=== PATIENT | male | born 1925 | race Caucasian/White ===

== ENCOUNTER → 2016-06-30 | Outpatient (CLI) | payer MEDICARE, BC ==
[~2016-06-30] MED LIST: BACT800T5 PO; BENI20TA5 PO; BENI40TA30 PO; CEPH500C3 PO; ERYT.5%O RIGHT EYE
[2016-06-30 12:24] LABS: BICARBONATE 26.8 MEQ/L (21.0-32.0); HDL CHOLESTEROL 68.4 MG/DL (40.0-60.0); INDIRECT BILIRUBIN 0.6 MG/DL (0.0-0.8); POTASSIUM 4.4 MEQ/L (3.5-5.1); TOTAL BILIRUBIN ADULT 0.8 MG/DL (0.2-1.0)
[2016-06-30 12:29] LABS: AUTOMATED NEUTROPHIL # 1.1 TH/MM3 (1.8-7.7); BASOPHIL % 1.2 % (0.0-2.0); EOSINOPHIL # 0.1 TH/MM3 (0-0.4); EOSINOPHIL % 3.6 % (0.0-4.0); HEMATOCRIT 31.4 % (39.0-51.0); HEMO FLAGS DIFF FINAL; LYMPH % 49.1 % (9.0-44.0); LYMPHOCYTE # 1.4 TH/MM3 (1.0-4.8); MEAN CELL VOLUME 101.7 FL (80.0-100.0); MEAN CORPUSCULAR HEMOGLOBIN 33.9 PG (27.0-34.0); MEAN CORPUSCULAR HGB CONC 33.3 % (32.0-36.0); MONO % 6.3 % (0.0-8.0); NEUT % 39.8 % (16.0-70.0); PLATELET COUNT 171 TH/MM3 (150-450); RED BLOOD COUNT 3.09 MIL/MM3 (4.50-5.90); RED CELL DISTRIBUTION WIDTH 16.7 % (11.6-17.2); WHITE BLOOD COUNT 2.8 TH/MM3 (4.0-11.0)
== END ==
LOC: PLAB 09:33
PROVIDERS: ATTEND Family Medicine
DX: E78.2 Mixed hyperlipidemia (principal); I12.9 Hypertensive chronic kidney disease with stage 1 through stage 4 chronic kidney disease, or unspecified chronic kidney disease; N18.2 Chronic kidney disease, stage 2 (mild); D63.1 Anemia in chronic kidney disease; D53.9 Nutritional anemia, unspecified; Z79.899 Other long term (current) drug therapy
CPT/HCPCS: 36415; 80048; 80061; 80076; 82607; 85025

== ENCOUNTER 2016-07-30 18:46 | Emergency (ER) | payer MEDICARE, BC ==
[~2016-07-30] VITALS: Ht 182.9 cm; Wt 75.0 kg
[~2016-07-30 18:46] MED LIST changes: -BENI20TA5 PO
[2016-07-30 18:49] VITALS: PULSE 104; RESP 17; TEMP 98.2; O2SAT 97
[2016-07-30] MEDS ORDERED: BENI20TA5 PO (19:05)
--- NOTE | 2016-07-30 19:17 | PD ---
HPI Chief Complaint: Skin Problem Time Seen by Provider: 19:00 Travel History International Travel<30 days: No Contact w/Intl Traveler<30days: No Traveled to known affect area: No History of Present Illness HPI 89-year-old male presents the emergency department status post skin tear on July 16, 2016 to the left posterior distal upper arm. Patient is here as she is concerned about possible cellulitis. He states it seems to be healing slowly but then he'll wash it and it bleed somewhat and he is concerned that it is not healing appropriately. Patient denies any pain, fever, or significant drainage. He is allergic to all amide drugs. 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) Reported Meds & Prescriptions Reported Meds & Active Scripts Active Reported Benicar (Olmesartan) 20 Mg Tab 20 Mg PO DAILY Review of Systems Except as stated in HPI: all other systems reviewed are Neg General / Constitutional: No: Fever Eyes: No: Visual changes HENT: No: Headaches Cardiovascular: No: Chest Pain or Discomfort Respiratory: No: Shortness of Breath Gastrointestinal: No: Abdominal Pain Genitourinary: No: Dysuria Musculoskeletal: No: Pain Skin: Positive Lesions, No Rash Neurologic: No: Weakness Psychiatric: No: Depression Endocrine: No: Polydipsia Hematologic/Lymphatic: No: Easy Bruising Physical Exam Narrative GENERAL: Patient appears in good spirits and in no acute distress SKIN: Warm and dry. Normal color. Normal turgor. Atrophic. Patient has a 6 cm well granulating linear skin tear in the vertical axis along the left posterior distal upper arm. HEAD: Atraumatic. Normocephalic. EYES: Pupils equal and round. No scleral icterus. No injection or drainage. ENT: No nasal bleeding or discharge. Mucous membranes pink and moist. Pharynx is clear. NECK: Trachea midline. Supple nontender. MUSCULOSKELETAL: Extremities without clubbing, cyanosis, or edema. No obvious deformities. NEUROLOGICAL: Awake and alert. No obvious cranial nerve deficits. Motor grossly within normal limits. Five out of 5 muscle strength in the arms and legs. Normal speech. PSYCHIATRIC: Appropriate mood and affect; insight and judgment normal. Data Data Last Documented VS Vital Signs Date Time Temp Pulse Resp B/P Pulse Ox O2 Delivery O2 Flow Rate FiO2 07/30/16 18:49 98.2 104 17 97 MDM Medical Decision Making Medical Screen Exam Complete: Yes Emergency Medical Condition: Yes Differential Diagnosis Skin tear. Nonhealing wound. Cellulitis. Narrative Course Patient is evaluated by myself and Dr. Villagomez. Patient is felt to have a slowly healing skin tear to the left posterior upper arm. Patient has no sign of cellulitis or abscess. Patient is to continue daily dressing changes with soap and water cleansing. Patient follow with his primary care physician or return to the ED if symptoms continue to worsen in anyway. Patient was counseled that this may take over 2 weeks to completely heal. Diagnosis Primary Impression: Skin tear of left upper arm without complication Qualified Code: S41.112A - Skin tear of left upper arm without complication, initial encounter Referrals: Primary Care Physician Patient Instructions: Chronic Wound Care (ED), General Instructions, Skin Tear (ED) Additional Instructions: Patient is evaluated by myself and Dr. Villagomez. Patient is felt to have a slowly healing skin tear to the left posterior upper arm. Patient has no sign of cellulitis or abscess. Patient is to continue daily dressing changes with soap and water cleansing. Patient follow with his primary care physician or return to the ED if symptoms continue to worsen in anyway. Patient was counseled that this may take over 2 weeks to completely heal. Med/Other Pt SpecificInfo: Wound Care Disposition: DISCHARGE HOME Condition: Stable Rafi Greene July 30, 2016 19:17
== END 2016-07-30 19:20 | disposition home or self-care (01) ==
LOC: PHEFT 18:46
DX: S41.112A Laceration without foreign body of left upper arm, initial encounter (principal); I10 Essential (primary) hypertension; X58.XXXA Exposure to other specified factors, initial encounter
CPT/HCPCS: 99282

== ENCOUNTER → 2016-12-20 | Outpatient (CLI) | payer MEDICARE, BC ==
[~2016-12-20] MED LIST changes: -BACT800T5 PO; +BENI20TA5 PO; -BENI40TA30 PO; -CEPH500C3 PO; -ERYT.5%O RIGHT EYE
[2016-12-20 10:40] LABS: AUTOMATED NEUTROPHIL # 1.6 TH/MM3 (1.8-7.7); BASOPHIL % 0.9 % (0.0-2.0); EOSINOPHIL # 0.2 TH/MM3 (0-0.4); EOSINOPHIL % 5.8 % (0.0-4.0); HEMATOCRIT 30.8 % (39.0-51.0); HEMO FLAGS DIFF FINAL; LYMPH % 39.2 % (9.0-44.0); LYMPHOCYTE # 1.3 TH/MM3 (1.0-4.8); MEAN CELL VOLUME 107.1 FL (80.0-100.0); MEAN CORPUSCULAR HEMOGLOBIN 34.9 PG (27.0-34.0); MEAN CORPUSCULAR HGB CONC 32.6 % (32.0-36.0); MONO % 8.1 % (0.0-8.0); PLATELET COUNT 143 TH/MM3 (150-450); RED BLOOD COUNT 2.87 MIL/MM3 (4.50-5.90); WHITE BLOOD COUNT 3.4 TH/MM3 (4.0-11.0)
[2016-12-20 10:57] LABS: HDL CHOLESTEROL 62.7 MG/DL (40.0-60.0); INDIRECT BILIRUBIN 0.5 MG/DL (0.0-0.8); TOTAL BILIRUBIN ADULT 0.7 MG/DL (0.2-1.0)
== END ==
LOC: PLAB 08:10
PROVIDERS: ATTEND Family Medicine
DX: E78.2 Mixed hyperlipidemia (principal); D53.9 Nutritional anemia, unspecified; Z79.899 Other long term (current) drug therapy
CPT/HCPCS: 36415; 80061; 80076; 85025

== ENCOUNTER → 2017-03-27 | Outpatient (CLI) | payer MEDICARE, BC ==
[~2017-03-27] MED LIST changes: -BENI20TA5 PO; +OLME1TAB PO
== END ==
LOC: PLAB 11:35
PROVIDERS: ATTEND Urology
DX: C61 Malignant neoplasm of prostate (principal)
CPT/HCPCS: 36415; 84153

== ENCOUNTER 2017-04-10 17:45 | Inpatient (IN) | payer MEDICARE, BC ==
[~2017-04-10] VITALS: Ht 182.9 cm; Wt 73.4 kg
[2017-04-10 17:45] VITALS: BP 154/123; PULSE 85; RESP 16; TEMP 98.1; O2SAT 95
[2017-04-10] MEDS ORDERED: IOHEXOL 350 MG/ML 10 ML VIAL (for RAD DIAG) IVCONTRAST ONE (17:46)
[2017-04-10] MEDS ORDERED: SODIUM CHLOR 0.9% 1000 ML INJ 1,000 ML IV ONE (17:50)
[2017-04-10] MEDS ORDERED: PROT40TA PO (18:10)
[2017-04-10] MEDS ORDERED: LOSA25TA PO (18:10)
[2017-04-10] MEDS ORDERED: LINA145C PO (18:10)
[2017-04-10 18:12] LABS: AUTOMATED NEUTROPHIL # 2.3 TH/MM3 (1.8-7.7); BASOPHIL # 0.2 TH/MM3 (0-0.2); BASOPHIL % 5.1 % (0.0-2.0); EOSINOPHIL # 0.2 TH/MM3 (0-0.4); EOSINOPHIL % 3.5 % (0.0-4.0); HEMATOCRIT 29.6 % (39.0-51.0); HEMOGLOBIN 10.2 GM/DL (13.0-17.0); LYMPH % 30.5 % (9.0-44.0); LYMPHOCYTE # 1.3 TH/MM3 (1.0-4.8); MEAN CELL VOLUME 106.5 FL (80.0-100.0); MEAN CORPUSCULAR HEMOGLOBIN 36.6 PG (27.0-34.0); MEAN CORPUSCULAR HGB CONC 34.3 % (32.0-36.0); MEAN PLATELET VOLUME 11.1 FL (7.0-11.0); MONO % 7.1 % (0.0-8.0); MONOCYTE # 0.3 TH/MM3 (0-0.9); NEUT % 53.8 % (16.0-70.0); PLATELET COUNT 231 TH/MM3 (150-450); RED BLOOD COUNT 2.78 MIL/MM3 (4.50-5.90); RED CELL DISTRIBUTION WIDTH 18.4 % (11.6-17.2); WHITE BLOOD COUNT 4.3 TH/MM3 (4.0-11.0)
[2017-04-10 18:14] VITALS: BP 136/67; PULSE 87; RESP 16; O2SAT 98
[2017-04-10] MEDS ORDERED: ASPIRIN EC 325 MG TABEC PO ONE (18:15)
--- NOTE | 2017-04-10 18:17 | RADRPT ---
EXAM DATE/TIME: 04/10/2017 18:01 [facility] COMPARISON: No previous studies available for comparison. INDICATIONS : Stroke alert, left side facial droop and left side arm weakness. RADIATION DOSE: 34.32 CTDIvol (mGy) This report was called by Dr. Serrano to Dr. Moreira at 6: 10 PM on 04/10/17. MEDICAL HISTORY : Non-responsive. SURGICAL HISTORY : Non-responsive. ENCOUNTER: Initial ACUITY: 1 day PAIN SCALE: Non-responsive LOCATION: cranial TECHNIQUE: Multiple contiguous axial images were obtained of the head. Using automated exposure control and adj ustment of the mA and/or kV according to patient size, radiation dose was kept as low as reasonably a chievable to obtain optimal diagnostic quality images. DICOM format image data is available electro nically for review and comparison. FINDINGS: CEREBRUM: Age-related volume loss is noted. No evidence of midline shift, mass lesion, hemorrhage or acute inf arction. No extra-axial fluid collections are seen. POSTERIOR FOSSA: The cerebellum and brainstem are intact. The 4th ventricle is midline. The cerebellopontine angle i s unremarkable. EXTRACRANIAL: The visualized portion of the orbits is intact. SKULL: The calvaria is intact. No evidence of skull fracture. CONCLUSION: 1. Age-related volume loss. 2. No acute edema, acute hemorrhage, midline shift or extra-axial fluid collections. Bry Serrano MD on April 10, 2017 at 18:12 Board Certified Radiologist. This report was verified electronically.
[2017-04-10 18:30] LABS: INTERNATIONAL NORMALIZED RATIO 1.1 RATIO; PROTHROMBIN TIME - PATIENT 11.1 SEC (9.8-11.6)
--- NOTE | 2017-04-10 18:42 | RADRPT ---
EXAM DATE/TIME: 04/10/2017 18:01 [facility] COMPARISON: No previous studies available for comparison. INDICATIONS : Stroke alert, left facial droop, left arm weakness. IV CONTRAST: 100 cc Omnipaque 350 (iohexol) IV ; Cumulative dose for multiple exams. RADIATION DOSE: 27.83 CTDIvol (mGy) ; Combined studies MEDICAL HISTORY : Non-responsive. SURGICAL HISTORY : Non-responsive. ENCOUNTER: Initial ACUITY: 1 day PAIN SCALE: Non-responsive LOCATION: cranial TECHNIQUE: Volumetric scanning was performed using a multi-row detector CT scanner. The data was post processed with a variety of visualization algorithms including full volume maximum intensity projection, multi -planar sliding thin slab reformation, curved planar reformation, and surface rendering techniques. Using automated exposure control and adjustment of the mA and/or kV according to patient size, radiat ion dose was kept as low as reasonably achievable to obtain optimal diagnostic quality images. DICO M format image data is available electronically for review and comparison. FINDINGS: There is excellent visualization of the major intracranial arteries out to the second-order branch ve ssels. There is no evidence for aneurysm, vessel truncation or stenosis, and no evidence for vascula r malformation. The bilateral pleural effusions are noted. CONCLUSION: 1. No significant stenosis, occlusion or aneurysm formation. 2. Bilateral pleural effusions. Bry Serrano MD on April 10, 2017 at 18:37 Board Certified Radiologist. This report was verified electronically.
[2017-04-10 18:51] LABS: TROPONIN I 0.67 NG/ML (0.02-0.05)
--- NOTE | 2017-04-10 18:51 | RADRPT ---
EXAM DATE/TIME: 04/10/2017 18:01 [facility] COMPARISON: No previous studies available for comparison. INDICATIONS : Stroke alert, left facial droop, left arm weakness, IV CONTRAST: 100 cc Omnipaque 350 (iohexol) IV ; Cumulative dose for multiple exams. RADIATION DOSE: 248.13 CTDIvol (mGy) ; Combined studies MEDICAL HISTORY : Non-responsive. SURGICAL HISTORY : Non-responsive. ENCOUNTER: Initial ACUITY: 1 day PAIN SCALE: Non-responsive LOCATION: cranial TECHNIQUE: CT perfusion of the brain was performed with calculation of input and output functions and generation of color coded blood flow, blood volume and mean transit time maps. Using automated exposure control and adjustment of the mA and/or kV according to patient size, radiation dose was kept as low as reas onably achievable to obtain optimal diagnostic quality images. DICOM format image data is available electronically for review and comparison. FINDINGS: The examination is limited due to technical factors. There appears to be decreased perfusion of the r ight frontoparietal region suggestive of acute infarct. Clinical correlation is recommended. MRI of t he brain would be helpful for confirmation of acute infarct in this patient if clinically indicated. CONCLUSION: Decrease perfusion of the right frontoparietal region suggestive of acute infarct. Clinical correlati on is recommended. The findings were discussed with Dr. Moreira at 6:48 PM on 04/10/17 Bry Serrano MD on April 10, 2017 at 18:43 Board Certified Radiologist. This report was verified electronically.
--- NOTE | 2017-04-10 19:06 | RADRPT ---
EXAM DATE/TIME: 04/10/2017 18:01 [facility] COMPARISON: No previous studies available for comparison. INDICATIONS : Stroke alert, left facial droop, left arm weakness. IV CONTRAST: 100 cc Omnipaque 350 (iohexol) IV ; Cumulative dose for multiple exams. RADIATION DOSE: 27.83 CTDIvol (mGy) ; Combined studies MEDICAL HISTORY : Non-responsive. SURGICAL HISTORY : Non-responsive. ENCOUNTER: Initial ACUITY: 1 day PAIN SCALE: Non-responsive LOCATION: cranial Elevated flow velocities and ICA/CCA ratios have been found to correlate with increased degrees of vessel stenosis, calculated as percentage of diameter relative to a normal segment of distal ICA/CCA. TECHNIQUE: Volumetric scanning was performed using a multirow detector CT scanner. The data was post processed with a variety of visualization algorithms including full-volume maximum intensity projection, multip lanar sliding thin-slab reformation, curved-planar reformation, and surface-rendering techniques. Us ing automated exposure control and adjustment of the mA and/or kV according to patient size, radiatio n dose was kept as low as reasonably achievable to obtain optimal diagnostic quality images. DICOM f ormat image data is available electronically for review and comparison. FINDINGS: AORTIC ARCH: There is a three-vessel origin of the great vessels from the aorta. No evidence of ostial narrowing. RIGHT CAROTID: The common carotid artery is intact. The carotid bulb has a normal configuration without ulceration o r narrowing. The internal carotid artery lumen is smooth without stenosis. The external carotid lazaro ry is intact. LEFT CAROTID: The common carotid artery is intact. The carotid bulb has a normal configuration without ulceration or narrowing. The internal carotid artery lumen is smooth without stenosis. The external carotid ar olga is intact. VERTEBRALS: The vertebral arteries have a symmetric diameter. No stenotic lesions are seen. CONCLUSION: 1. No stenosis or occlusion of the carotid or vertebral arteries. 2. Bilateral pleural effusions. Bry Serrano MD on April 10, 2017 at 19:03 Board Certified Radiologist. This report was verified electronically.
[2017-04-10] MEDS: SODIUM CHLOR 0.9% 1000 ML INJ 1,000 ML IV SCH ×2 (19:12→23:38)
[2017-04-10 19:15] VITALS: O2SAT 98
--- NOTE | 2017-04-10 19:15 | PD ---
HPI Chief Complaint: Stroke Alert Time Seen by Provider: 17:50 Travel History International Travel<30 days: No Contact w/Intl Traveler<30days: No Traveled to known affect area: No History of Present Illness HPI Patient is an 89-year-old male who comes in as a stroke alert by EMS. Per EMS, symptoms started about 45 minutes prior to arrival. He says he was sitting on the couch when started. He is having left-sided facial droop and arm weakness. Per his , he has been very tired for the past week and not sleeping well. He denies chest pain or shortness of breath. He says he saw his primary care physician this morning and was told everything was okay. He denies any headache or head trauma. His symptoms are improving since EMS has been with him. 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) Eye Surgery: Yes (CATARACT) Social History Alcohol Use: Yes (Occ.) Tobacco Use: No Substance Use: No Allergies-Medications (Allergen,Severity, Reaction): Uncoded Allergies: ALL AMIDE DRUGS (Adverse Reaction, Severe, MALIGNANT HYPERTHERMIA, 04/10/17) Reported Meds & Prescriptions Reported Meds & Active Scripts Active Reported Protonix (Pantoprazole Sodium) 40 Mg Tab 40 Mg PO DAILY Losartan (Losartan Potassium) 25 Mg Tab 25 Mg PO DAILY Linzess (Linaclotide) 145 Mcg Cap 145 Mcg PO DAILY Review of Systems Except as stated in HPI: all other systems reviewed are Neg General / Constitutional: No: Fever, Chills Eyes: No: Blurred Vision HENT: No: Headaches, Lightheadedness Cardiovascular: No: Chest Pain or Discomfort Respiratory: No: Shortness of Breath Gastrointestinal: No: Nausea, Vomiting Genitourinary: No: Dysuria Musculoskeletal: No: Pain Skin: No Change in Pigmentation Neurologic: Positive: Weakness, No: Syncope Physical Exam Narrative GENERAL: Awake and alert, in no acute distress. SKIN: Focused skin assessment warm/dry. No signs of infection. HEAD: Atraumatic. Normocephalic. EYES: Pupils equal and round. No scleral icterus. Extraocular movements intact. ENT: Mucous membranes pink and moist. NECK: Trachea midline. No JVD. CARDIOVASCULAR: Regular rate and rhythm. No murmur appreciated. RESPIRATORY: No accessory muscle use. Clear to auscultation. Breath sounds equal bilaterally. GASTROINTESTINAL: Abdomen soft, non-tender, nondistended. MUSCULOSKELETAL: No obvious deformities. No clubbing. No cyanosis. No edema. NEUROLOGICAL: Awake and alert. Left-sided facial droop. motor strength 3 out of 5 on the left, 5 out of 5 in the night. Slurred speech PSYCHIATRIC: Appropriate mood and affect; insight and judgment normal. Data Data Last Documented VS Vital Signs Date Time Temp Pulse Resp B/P (MAP) Pulse Ox O2 Delivery O2 Flow Rate FiO2 04/10/17 18:14 87 16 136/67 (90) 98 Room Air 04/10/17 18:07 2.00 04/10/17 17:45 98.1 Orders Orders Diet Npo (04/10/17 Dinner) Activity Bed Rest (04/10/17 ) Electrocardiogram (04/10/17 ) I-Stat Profile (04/10/17 17:50) Prothrombin Time / Inr (Pt) (04/10/17 17:50) Act Partial Throm Time (Ptt) (04/10/17 17:50) Complete Blood Count With Diff (04/10/17 17:50) Fibrinogen (04/10/17 17:50) Creatine Kinase (Cpk) (04/10/17 17:50) Troponin I (04/10/17 17:50) Ua Includes Microscopic (04/10/17 17:50) Drug Screen, Random Urine (04/10/17 17:50) Type And Screen (04/10/17 17:50) Ct Brain W/O Iv Contrast(Rout) (04/10/17 ) Cta Brain W Iv Contrast W 3d (04/10/17 17:50) Cta Neck W Iv Contrast W 3d (04/10/17 17:50) Consult Neurology (04/10/17 ) Blood Glucose (04/10/17 17:50) Ecg Monitoring (04/10/17 17:50) Neuro Checks Q2HX12,Q4H (04/10/17 17:50) Nursing Bedside Swallow Assess .ONCE (04/10/17 17:50) Iv Access Insert/Monitor (04/10/17 17:50) NPO (04/10/17 17:50) Oximetry (04/10/17 17:50) Resp Oxygen Nc Stroke (04/10/17 ) Sodium Chlor 0.9% 1000 Ml Inj (Ns 1000 M (04/10/17 17:50) Cath For Specimen (04/10/17 17:50) Ct Cerebral Perf W Iv Cont W3d (04/10/17 ) Iohexol 350 Inj (Omnipaque 350 Inj) (04/10/17 17:46) Westergren Sedimentation Rate (04/10/17 18:05) Lilia Screen (04/10/17 18:05) Thyroid Stimulating Hormone (04/10/17 18:05) Free Thyroxine (T4) (04/10/17 18:05) Vitamin B1 (Thiamine) (04/10/17 18:05) Vitamin B12 (04/10/17 18:05) Urinalysis - C+S If Indicated (04/10/17 18:05) C-Reactive Protein (Crp) (04/10/17 18:05) Methylmalonic Acid (Mma) (04/10/17 18:05) Ast (Sgot) (04/10/17 18:05) Alt (Sgpt) (04/10/17 18:05) Mri Brain W&W/O Contrast (04/10/17 18:05) Echo 2d Comp With Doppler (04/10/17 18:05) Holter Monitor Recording (04/10/17 18:05) Bulk Pigment Reducer / Telemetry HUMBERTO.Q8H (04/10/17 18:05) ^ Seizure Precautions (04/10/17 18:05) Sodium Chlor 0.9% 1000 Ml Inj (Ns 1000 M (04/10/17 18:05) Lipid Profile (04/10/17 18:05) Folate, Serum (04/10/17 18:05) Scd&Teds Bilateral/Knee High HUMBERTO.QSHIFT (04/10/17 18:05) [place] (04/10/17 18:05) ^ Other Nursing Orders (04/10/17 18:05) Aspirin Ec (Ecotrin Ec) (04/10/17 18:15) ^ Other Nursing Orders (04/10/17 18:05) Aspirin Ec (Ecotrin Ec) (04/11/17 09:00) (Hub Use Only)Inp Phy Cons/Ref (04/10/17 ) Chest, Single Ap (04/10/17 ) Heparin Inj (Heparin Inj) (04/11/17 01:00) Heparin Inj (Heparin Inj) (04/11/17 01:00) Heparin-D5w 25,000 U/250 Ml (Heparin-D5w (04/10/17 19:45) Cbc No Diff, Includes Plts (04/13/17 06:00) Act Partial Throm Time (Ptt) (04/11/17 01:59) Occult Blood (Hemoccult) Stool (04/10/17 18:59) Admit Order (Ed Use Only) (04/10/17 ) Labs Laboratory Tests Test 04/10/17 17:49 04/10/17 18:55 White Blood Count 4.3 TH/MM3 Red Blood Count 2.78 MIL/MM3 Hemoglobin 10.2 GM/DL Bedside Hemoglobin 9.9 G/DL Hematocrit 29.6 % Bedside Hematocrit 29.0 % Mean Corpuscular Volume 106.5 FL Mean Corpuscular Hemoglobin 36.6 PG Mean Corpuscular Hemoglobin Concent 34.3 % Red Cell Distribution Width 18.4 % Platelet Count 231 TH/MM3 Mean Platelet Volume 11.1 FL Neutrophils (%) (Auto) 53.8 % Lymphocytes (%) (Auto) 30.5 % Monocytes (%) (Auto) 7.1 % Eosinophils (%) (Auto) 3.5 % Basophils (%) (Auto) 5.1 % Neutrophils # (Auto) 2.3 TH/MM3 Lymphocytes # (Auto) 1.3 TH/MM3 Monocytes # (Auto) 0.3 TH/MM3 Eosinophils # (Auto) 0.2 TH/MM3 Basophils # (Auto) 0.2 TH/MM3 CBC Comment DIFF FINAL Differential Comment Prothrombin Time 11.1 SEC Prothromb Time International Ratio 1.1 RATIO Activated Partial Thromboplast Time 26.4 SEC Fibrinogen 277 mg/dL Bedside Sodium 140 MMOL/L Bedside Potassium 4.9 MMOL/L Bedside Chloride 105 MMOL/L Bedside Blood Urea Nitrogen 29 MG/DL Bedside Creatinine 1.3 MG/DL Bedside Glucose 110 MG/DL Total Creatine Kinase 125 U/L Troponin I 0.67 NG/ML Erythrocyte Sedimentation Rate 32 mm/hr Aspartate Amino Transf (AST/SGOT) 23 U/L Alanine Aminotransferase (ALT/SGPT) 26 U/L C-Reactive Protein 0.64 MG/DL Triglycerides Level 58 MG/DL Cholesterol Level 100 MG/DL MDM Medical Decision Making Medical Screen Exam Complete: Yes Emergency Medical Condition: Yes Medical Record Reviewed: Yes Interpretation(s) ECG shows normal sinus rhythm at 95 with frequent PVCs, no ST elevation or depression Differential Diagnosis Stroke versus ACS versus dehydration versus sepsis Narrative Course Patient is an 89-year-old male who comes in as a stroke alert. Exam shows left- sided weakness as well as facial droop. Patient placed on a quality assurance monitor final, taken to CT for head CT. IV was established, labs sent. Head CT shows no evidence of bleed. TPA withheld because of resolving symptoms , and minor severity of the stroke. CTA of the head shows pleural effusions in the lungs, no other acute abnormalities. Last 24 hours Impressions Head CTA 04/10/17 1750 Signed Impressions: Service Date/Time: Monday, April 10, 2017 18:01 - CONCLUSION: 1. No significant stenosis, occlusion or aneurysm formation. 2. Bilateral pleural effusions. Bry Serrano MD Head/Neck CTA with Brain Perfusion 04/10/17 0000 Signed Impressions: Service Date/Time: Monday, April 10, 2017 18:01 - CONCLUSION: Decrease perfusion of the right frontoparietal region suggestive of acute infarct. Clinical correlation is recommended. The findings were discussed with Dr. Moreira at 6:48 PM on 04/10/17 Bry Serrano MD Head CT 04/10/17 0000 Signed Impressions: Service Date/Time: Monday, April 10, 2017 18:01 - CONCLUSION: 1. Age- related volume loss. 2. No acute edema, acute hemorrhage, midline shift or extra- axial fluid collections. Bry Serrano MD Patient was given aspirin. Labs show an elevated troponin. He was started on heparin. He will be admitted for further management. Diagnosis Primary Impression: CVA (cerebral vascular accident) Qualified Codes: I63.9 - Cerebral infarction, unspecified Additional Impression: NSTEMI (non-ST elevated myocardial infarction) Admitting Information Admitting Physician Requests: Admit Neda Juárez MD Apr 10, 2017 19:15
--- NOTE | 2017-04-10 19:21 | HHI.HP ---
[facility] Divya Ferris MD Admission Diagnosis NSTEMI, CVA Diagnoses: (1) CVA (cerebral vascular accident) Diagnosis: Principal (2) NSTEMI (non-ST elevated myocardial infarction) Diagnosis: Principal (3) HTN (hypertension) Diagnosis: Principal (4) UTI (urinary tract infection) Diagnosis: Principal Travel History International Travel<30 Days: No Contact w/Intl Traveler <30 Da: No Traveled to Known Affected Are: No History of Present Illness This is an 89-year-old male with a PMH of HTN and Prostate CA was brought to the ER by EMS as a Stroke Alert. Per and friend at bedside, patient had acute onset of left-sided facial droop, slurred speech and left-sided weakness. states pt has had generalized weakness for approx 1wk, worse w/ exertion , for which he has been evaluated by PCP. No previous h/o CVA. On arrival, BP 154/123, HR 85, O2 sat 95% on RA, Afebrile. CBC essentially unremarkable. Chemistry unremarkable. Troponin 0.67. INR 1.1. U/a w/ UTI. CT Head w/ age- related volume loss. CTA with decreased perfusion right frontoparietal region suggestive of acute infarct. CTA Neck with no stenosis or occlusion. Dr. Moreira consulted by ER physician, recommended Heparin gtt and further imaging for eval. Review of Systems Except as stated in HPI: all other systems reviewed are Neg ROS: 14 point review of systems otherwise negative. 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 No h/o DM or CAD Social History PAST SOCIAL HISTORY: Occasional alcohol. Negative for tobacco or drugs. Physical Exam Vital Signs Vital Signs Date Time Temp Pulse Resp B/P (MAP) Pulse Ox O2 Delivery O2 Flow Rate FiO2 04/10/17 18:14 87 16 136/67 (90) 98 Room Air 04/10/17 18:07 97 Nasal Cannula 2.00 04/10/17 17:45 98.1 85 16 154/123 (133) 95 Physical Exam PE: GENERAL: Extremely pleasant elderly white male in no acute distress. and friend at bedside. HEENT: PERRLA, EOMI. No scleral icterus or conjunctival pallor. No lid lag. Mild facial droop. Mild slurring of speech. CARDIOVASCULAR: Regular rate and rhythm. No obvious murmurs to auscultation. No chest tenderness to palpation. RESPIRATORY: No obvious rhonchi or wheezing. Clear to auscultation. Breath sounds equal bilaterally. GASTROINTESTINAL: Abdomen soft, non-tender, nondistended. BS normal. MUSCULOSKELETAL: Extremities without clubbing, cyanosis, or edema. No obvious deformities. NEUROLOGICAL: Awake, alert and oriented x4. Strength 5/5 all extremities. No focal neurologic deficits. Moving both upper and lower extremities spontaneously. Laboratory Laboratory Tests Test 04/10/17 17:49 04/10/17 18:55 White Blood Count 4.3 Red Blood Count 2.78 Hemoglobin 10.2 Bedside Hemoglobin 9.9 Hematocrit 29.6 Bedside Hematocrit 29.0 Mean Corpuscular Volume 106.5 Mean Corpuscular Hemoglobin 36.6 Mean Corpuscular Hemoglobin Concent 34.3 Red Cell Distribution Width 18.4 Platelet Count 231 Mean Platelet Volume 11.1 Neutrophils (%) (Auto) 53.8 Lymphocytes (%) (Auto) 30.5 Monocytes (%) (Auto) 7.1 Eosinophils (%) (Auto) 3.5 Basophils (%) (Auto) 5.1 Neutrophils # (Auto) 2.3 Lymphocytes # (Auto) 1.3 Monocytes # (Auto) 0.3 Eosinophils # (Auto) 0.2 Basophils # (Auto) 0.2 CBC Comment DIFF FINAL Differential Comment Prothrombin Time 11.1 Prothromb Time International Ratio 1.1 Activated Partial Thromboplast Time 26.4 Fibrinogen 277 Bedside Sodium 140 Bedside Potassium 4.9 Bedside Chloride 105 Bedside Blood Urea Nitrogen 29 Bedside Creatinine 1.3 Bedside Glucose 110 Total Creatine Kinase 125 Troponin I 0.67 Result Diagram: 04/10/17 1746 Caprini VTE Risk Assessment Caprini VTE Risk Assessment: Mod/High Risk (score >= 2) Caprini Risk Assessment Model Point Value = 1 Point Value = 2 Point Value = 3 Point Value = 5 Age 41-60 Minor surgery BMI > 25 kg/m2 Swollen legs Varicose veins or History of unexplained or recurrent spontaneous Oral contraceptives or hormone replacement Sepsis (< 1 month) Serious lung disease, including pneumonia (< 1 month) Abnormal pulmonary function Acute myocardial infarction Congestive heart failure (< 1 month) History of inflammatory bowel disease Medical patient at bed rest Age 61-74 Arthroscopic surgery Major open surgery (> 45 min) Laparoscopic surgery (> 45 min) Malignancy Confined to bed (> 72 hours) Immobilizing plaster cast Central venous access Age >= 75 History of VTE Family history of VTE Factor V Leiden Prothrombin [id number] Lupus anticoagulant Anticardiolipin antibodies Elevated serum homocysteine Heparin-induced thrombocytopenia Other congenital or acquired thrombophilia Stroke (< 1 month) Elective arthroplasty Hip, pelvis, or leg fracture Acute spinal cord injury (< 1 month) Prophylaxis Regimen Total Risk Factor Score Risk Level Prophylaxis Regimen 0-1 Low Early ambulation 2 Moderate Order ONE of the following: *Sequential Compression Device (SCD) *Heparin 5000 units SQ BID 3-4 Higher Order ONE of the following medications: *Heparin 5000 units SQ TID *Enoxaparin/Lovenox 40 mg SQ daily (WT < 150 kg, CrCl > 30 mL/min) *Enoxaparin/Lovenox 30 mg SQ daily (WT < 150 kg, CrCl > 10-29 mL/min) *Enoxaparin/Lovenox 30 mg SQ BID (WT < 150 kg, CrCl > 30 mL/min) AND/OR *Sequential Compression Device (SCD) 5 or more Highest Order ONE of the following medications: *Heparin 5000 units SQ TID (Preferred with Epidurals) *Enoxaparin/Lovenox 40 mg SQ daily (WT < 150 kg, CrCl > 30 mL/min) *Enoxaparin/Lovenox 30 mg SQ daily (WT < 150 kg, CrCl > 10-29 mL/min) *Enoxaparin/Lovenox 30 mg SQ BID (WT < 150 kg, CrCl > 30 mL/min) AND *Sequential Compression Device (SCD) Assessment and Plan Problem List: (1) CVA (cerebral vascular accident) ICD Code: I63.9 - Cerebral infarction, unspecified Status: Acute (2) NSTEMI (non-ST elevated myocardial infarction) ICD Code: I21.4 - Non-ST elevation (NSTEMI) myocardial infarction Status: Acute (3) HTN (hypertension) ICD Code: I10 - Essential (primary) hypertension (4) UTI (urinary tract infection) ICD Code: N39.0 - Urinary tract infection, site not specified Assessment and Plan A/P: 1. CVA: acute onset of slurred speech, facial droop and left-sided weakness, symptoms improved. Not TPA candidate. CT Head negative, CTA w/ acute right frontoparietal infarct, images reviewed by me. Neuro checks, NPO, IVF, HOB flat. Dr. Moreira consulted, recommendation for Heparin gtt, MRI pending. PT/ Speech for eval/tx. 2. NSTEMI: Trop 0.67, EKG w/ no acute ischemia, no c/o chest pain. Check serial cardiac enzymes, continue w/ Heparin gtt, check Lipid Profile, Check Hgb A1c. Consult Cardiology for further recommendations/intervention. CXR w/ patchy opacity, mild pulmonary congestion. Check Echo to eval for heart failure. 3. HTN: Permissive HTN in light of CVA. Antihypertensives prn for systolic > 220. Monitor BP closely. 4. UTI: U/a w/ UTI, c/o weakness x1 wk, likely compounded by UTI. Start IV Rocephin, IVF for hydration, repeat labs in am. 5. DVT Prophylaxis: Heparin gtt 6. Social work for dc planning as needed. 7. Labs/records/imaging reviewed by me, case discussed w/ ER physician at length. Physician Certification 2 Midnight Certification Type: Admission for Inpatient Services Order for Inpatient Services The services are ordered in accordance with Medicare regulations or non- Medicare payer requirements, as applicable. In the case of services not specified as inpatient-only, they are appropriately provided as inpatient services in accordance with the 2-midnight benchmark. Estimated LOS (days): 2 days is the estimated time the patient will need to remain in the hospital, assuming treatment plan goals are met and no additional complications. Post-Hospital Plan: Not yet determined Problem Qualifiers (1) CVA (cerebral vascular accident): Qualified Codes: I63.9 - Cerebral infarction, unspecified Usha Valverde MD Apr 10, 2017 19:21
[2017-04-10] MEDS ORDERED: BISACODYL 10 MG SUPP RECTAL PRN (19:30)
[2017-04-10] MEDS ORDERED: ACETAMINOPHEN/HYDROcodone 325 MG/5 MG TAB PO PRN (19:30)
[2017-04-10] MEDS ORDERED: SODIUM CHLORIDE 0.9% FLUSH 10 ML FLUSH IV FLUSH PRN (19:30)
[2017-04-10] MEDS ORDERED: ONDANSETRON HCL 4 MG/2 ML VIAL IVP PRN (19:30)
[2017-04-10] MEDS ORDERED: SENNOSIDES 8.6 MG TAB PO PRN (19:30)
[2017-04-10] MEDS ORDERED: MAGNESIUM HYDROXIDE SUSP 30 ML CUP PO PRN (19:30)
[2017-04-10] MEDS ORDERED: MORPHINE SULFATE 2 MG/ML INJ IV PUSH PRN (19:30)
[2017-04-10] MEDS ORDERED: GLUCAGON 1 MG/ML VIAL OTHER PRN (19:30)
[2017-04-10] MEDS ORDERED: ENALAPRILAT 1.25 MG/ML VIAL IV PUSH PRN (19:30)
[2017-04-10] MEDS ORDERED: DEXTROSE 50% IN WATER 50 ML VIAL(D50) IV PUSH PRN (19:30)
[2017-04-10] MEDS ORDERED: LACTULOSE SYRUP 20 GM/30 ML CUP PO PRN (19:30)
[2017-04-10] MEDS ORDERED: ACETAMINOPHEN 325 MG TAB PO PRN (19:30)
[2017-04-10 19:35] LABS: ALT (GPT) 26 U/L (12-78); AST (GOT) 23 U/L (15-37); C-REACTIVE PROTEIN 0.64 MG/DL (0.00-0.30); CHOLESTEROL 100 MG/DL (120-200); TRIGLYCERIDES 58 MG/DL (42-150)
[2017-04-10] MEDS ORDERED: GADODIAMIDE PF 287 MG/ML 5 ML VIAL (for RAD MRI) IVCONTRAST ONE (19:50)
[2017-04-10 20:00] LABS: CHOLESTEROL/ HDL RATIO 2.26 RATIO; HDL CHOLESTEROL 44.1 MG/DL (40.0-60.0); LDL CHOLESTEROL 44 MG/DL (0-99)
[2017-04-10 20:01] LABS: FOLATE GREATER THAN 20.0 NG/ML (3.1-17.5)
--- NOTE | 2017-04-10 20:11 | RADRPT ---
EXAM DATE/TIME: 04/10/2017 19:14 [facility] COMPARISON: No previous studies available for comparison. INDICATIONS : Short of breath. MEDICAL HISTORY : None. SURGICAL HISTORY : None. ENCOUNTER: Initial ACUITY: 1 day PAIN SCORE: 0/10 LOCATION: Bilateral chest FINDINGS: There is patchy opacity within the right lower lung field consistent with possible pneumonia. Clinica l correlation is recommended. The heart is mildly prominent. The left lung is clear. Minimal central pulmonary vascular congestion is noted. CONCLUSION: 1. Patchy opacity within right lower lung infiltrates with possible pneumonia. Clinical correlation i s recommended. 2. Mild cardiomegaly and minimal central pulmonary vascular congestion. Bry Serrano MD on April 10, 2017 at 20:06 Board Certified Radiologist. This report was verified electronically.
--- NOTE | 2017-04-10 20:14 | RADRPT ---
EXAM DATE/TIME: 04/10/2017 19:32 [facility] COMPARISON: No previous studies available for comparison. INDICATIONS : CVA. CONTRAST: 14 cc Omniscan (gadodiamide) IV MEDICAL HISTORY : Hypertension. Carcinoma, prostate. SURGICAL HISTORY : Prostatectomy. ENCOUNTER: Initial ACUITY: 1 day PAIN SCORE: 2/10 LOCATION: Bilateral cranial TECHNIQUE: Multiplanar, multisequence MRI of the brain was performed both prior to and following the administrat ion of paramagnetic contrast. FINDINGS: CEREBRUM: There is subtle hyperintensity involving the right frontoparietal cortex on the diffusion weighted im ages suggestive of acute infarct. Clinical correlation is recommended. No midline shift is noted. No acute hemorrhage is noted. Age-related volume loss is noted. WHITE MATTER: Minimal periventricular and subcortical white matter small vessel ischemic changes are noted bilatera lly. POSTERIOR FOSSA: The cerebellum and brainstem are intact. The 4th ventricle is midline. The cerebellopontine angle is unremarkable. The cerebellar tonsils are normal in position. DIFFUSION IMAGING: No focal areas of restricted diffusion are seen. No evidence of acute infarction. EXTRACRANIAL: The visualized portions of the orbits and paranasal sinuses are unremarkable. POST-CONTRAST: No abnormal areas of parenchymal or dural enhancement. No evidence of blood-brain barrier breakdown. CONCLUSION: 1. Subtle hyperintensity involving the right frontoparietal cortex on the diffusion weighted images s uggestive of acute infarct. Clinical correlation is recommended. 2. Age-related volume loss. 3. Minimal periventricular and subcortical white matter small vessel ischemic changes bilaterally. Bry Serrano MD on April 10, 2017 at 20:08 Board Certified Radiologist. This report was verified electronically.
[2017-04-10 20:53] LABS: BACTERIA, URINE MOD /hpf; BILIRUBIN, URINE NEG (NEG); BLOOD, URINE NEG (NEG); GLUCOSE,URINE NEG (NEG); HYALINE CAST, URINE 1 /lpf (RARE); KETONE, URINE NEG (NEG); MUCUS URINE FEW /lpf (OCC); NITRITE,URINE NEG (NEG); URINE COLOR YELLOW (YELLW/STRAW); URINE LEUKOCYTE ESTERASE MOD (NEG)
[2017-04-10] MEDS: DOCUSATE SODIUM 50 MG/SENNA 8.6 MG TAB PO SCH (21:00)
[2017-04-10] MEDS: INSULIN ASPART SUPPLEMENTAL SCALE SQ SCH (21:00)
[2017-04-10] MEDS: SODIUM CHLORIDE 0.9% FLUSH 10 ML FLUSH IV FLUSH SCH (21:00)
[2017-04-10] MEDS: PRAVASTATIN SOD 40 MG TAB PO SCH (21:10)
[2017-04-10] MEDS: HEPARIN-D5W 25,000 U/250 ML 250 ML IV PRN (21:47)
[2017-04-10 21:57] VITALS: BP 136/72; PULSE 88; RESP 16; O2SAT 98
[2017-04-10 23:00] VITALS: BP 114/65; PULSE 102; RESP 20; TEMP 98.3; O2SAT 93
--- NOTE | 2017-04-10 23:02 | MB ---
cc: MIGUEL VARGAS DATE OF CONSULTATION: 04/10/2017 REASON FOR CONSULTATION: HISTORY OF PRESENT ILLNESS: The patient is an 89 year-old right-handed man with hypertension, otherwise has been very healthy. He has a history of prostate cancer but that was nine years ago. He comes in with evidently some history of malignant hyperthermia and he comes in with some left-sided weakness, onset was approximately 40 to 50 minutes ago. He tells me does not take an aspirin regularly. REVIEW OF SYSTEMS: He denies any headache, chest pain, palpitations, diabetes, hypercholesterolemia, [place], CABG, stent, angioplasty, A-fib, Coumadin, renal, hepatic, pulmonary disease, thyroid disease, lupus, ulcer, seizure or stroke. SOCIAL HISTORY He is not a smoker or drinker. FAMILY HISTORY Negative for seizure or stroke. PHYSICAL EXAMINATION: VITAL SIGNS: Blood pressure 140/120. He is in sinus rhythm. There were no carotid bruits. Heart: Regular rhythm. I did not detect a murmur. Pupils were equal, visual watts full. Extraocular movements intact without nystagmus. Face shows a slight left facial droop which he moves almost symmetrically, a little bit less on the left. Tongue was midline. There was no drift. He has normal strength in upper and lower extremities bilaterally. Toes were downgoing bilaterally. DTRs are absent throughout. Pinprick slightly decreased on the left face and lower face but not in the upper face on the left compared to the right and intact in the legs, slightly less on the left hand than the right. He can repeat fine. His calculations are intact. He shows me his left thumb fine. He follows commands fine. NIH stroke scale is a 2. LABORATORY DATA: creatinine is 1.3. His basic metabolic profile normal, glucose normal, hematocrit and hemoglobin normal. IMPRESSION Right hemisphere infarct, likely. He has a very mild deficit. Will not give him TPA at this time. Will see what the CT and CTA shows. The CT scan just came off the CT scanner. CT is negative, and shows some mild diffuse atrophy. No hemorrhage. No obvious infarct. MD FRANNIE Zamora/ZACK /5:58 PM /10:46 PM
[2017-04-11] VITALS (15 sets, daily range): BP systolic 123–139; BP diastolic 66–85; PULSE 51–102; RESP 18; TEMP 97.3–98.2; O2SAT 93–96
[2017-04-11] MEDS ORDERED: HEPARIN SODIUM - IV 10,000 UNITS/10 ML VIAL IV PUSH PRN ×2 (01:00)
[2017-04-11] MEDS: cefTRIAXone INJ 1,000 MG in SODIUM CHLORIDE 0.9% INJ 100 ML IV SCH (05:51)
[2017-04-11 06:42] LABS: AUTOMATED NEUTROPHIL # 3.1 TH/MM3 (1.8-7.7); BASOPHIL # 0.3 TH/MM3 (0-0.2); BASOPHIL % 6.2 % (0.0-2.0); EOSINOPHIL % 0.9 % (0.0-4.0); HEMATOCRIT 32.3 % (39.0-51.0); HEMOGLOBIN 10.9 GM/DL (13.0-17.0); LYMPH % 27.6 % (9.0-44.0); LYMPHOCYTE # 1.4 TH/MM3 (1.0-4.8); MEAN CELL VOLUME 107.2 FL (80.0-100.0); MEAN CORPUSCULAR HEMOGLOBIN 36.2 PG (27.0-34.0); MEAN CORPUSCULAR HGB CONC 33.8 % (32.0-36.0); MEAN PLATELET VOLUME 10.8 FL (7.0-11.0); MONO % 4.2 % (0.0-8.0); MONOCYTE # 0.2 TH/MM3 (0-0.9); NEUT % 61.1 % (16.0-70.0); PLATELET COUNT 238 TH/MM3 (150-450); RED BLOOD COUNT 3.02 MIL/MM3 (4.50-5.90); RED CELL DISTRIBUTION WIDTH 18.9 % (11.6-17.2); WHITE BLOOD COUNT 5.2 TH/MM3 (4.0-11.0)
[2017-04-11 07:04] LABS: ALBUMIN 3.3 GM/DL (3.4-5.0); ALT (GPT) 25 U/L (12-78); AST (GOT) 23 U/L (15-37); BICARBONATE 19.9 MEQ/L (21.0-32.0); BLOOD UREA NITROGEN 25 MG/DL (7-18); CALCIUM 8.3 MG/DL (8.5-10.1); CHLORIDE 108 MEQ/L (98-107); CHOLESTEROL 108 MG/DL (120-200); CREATININE 1.44 MG/DL (0.60-1.30); GLOMERULAR FILTRATION RATE 46 ML/MIN (>89); GLUCOSE,RANDOM 134 MG/DL (74-106); SODIUM (NA) 141 MEQ/L (136-145)
[2017-04-11 07:08] LABS: ALKALINE PHOSPHATASE 58 U/L (45-117); CHOLESTEROL/ HDL RATIO 2.25 RATIO; LDL CHOLESTEROL 51 MG/DL (0-99); TOTAL PROTEIN 6.7 GM/DL (6.4-8.2); TRIGLYCERIDES 46 MG/DL (42-150); TROPONIN I 0.58 NG/ML (0.02-0.05)
[2017-04-11] MEDS: INSULIN ASPART SUPPLEMENTAL SCALE SQ SCH ×4 (08:00→21:00)
--- NOTE | 2017-04-11 08:07 | HHI.PR ---
Subjective Remarks lot of pvc sr Objective Vital Signs Date Time Temp Pulse Resp B/P (MAP) Pulse Ox O2 Delivery O2 Flow Rate FiO2 04/11/17 04:00 90 04/11/17 04:00 98.1 90 18 127/69 (88) 96 04/11/17 03:00 102 04/11/17 02:00 94 04/11/17 01:11 96 04/11/17 00:00 97.9 88 18 123/66 (85) 95 04/10/17 23:00 98.3 102 20 114/65 (81) 93 04/10/17 22:38 04/10/17 21:57 88 16 136/72 (93) 98 Nasal Cannula 2.00 04/10/17 19:15 98 21 04/10/17 18:14 87 16 136/67 (90) 98 Room Air 04/10/17 18:07 97 Nasal Cannula 2.00 04/10/17 17:45 98.1 85 16 154/123 (133) 95 I/O 04/10/17 04/10/17 04/10/17 04/11/17 04/11/17 04/11/17 07:00 15:00 23:00 07:00 15:00 23:00 Intake Total 560 ml Balance 560 ml Intake Oral 60 ml IV Total 500 ml # Voids 1 # Bowel Movements 0 Result Diagram: 04/11/1743204/11/17 043 Objective Remarks awke alert vff face sym 5/5 t/o neuro exam nl Assessment and Plan Assessment and Plan imp trop inc r mca cva on difusion image echo and holter pend ldl nl on asa and iv heparin should be no bolus ever!! needs cards to see and needs coumadin from my point of view Yong Moreira MD Apr 11, 2017 08:07
--- NOTE | 2017-04-11 08:58 | MB ---
cc: EUNICE HDEZ DATE OF CONSULTATION 04/11/2017 HISTORY OF PRESENT ILLNESS An 89-year-old white male with a history of hypertension but no previous cardiac history. He presented with left-sided weakness. He was diagnosed with right hemispheric infarct. He was not given t-PA since he had only a mild deficit. He denies any chest pain or shortness of breath. PAST MEDICAL HISTORY Positive for - 1. Hypertension. 2. Prostate cancer. 3. Malignant hypothermia. No history of diabetes mellitus, dyslipidemia, coronary disease or CVA. No history of atrial fibrillation. MEDICATIONS 1. Losartan. 2. Pantoprazole. 3. Linzess. ALLERGIES ALL AMIDE DRUGS. SOCIAL HISTORY The patient does not smoke. He drinks alcohol infrequently. FAMILY HISTORY Positive for heart disease in his father. REVIEW OF SYSTEMS Review of systems is otherwise negative. PHYSICAL EXAMINATION VITAL SIGNS: Blood pressure of 127/69, pulse 90 and regular. HEENT: Negative. NECK: 2+ carotid upstrikes, no bruits. LUNGS: Clear. HEART: Regular with no murmur, gallop or rub. ABDOMEN: Soft. No bruits. EXTREMITIES: Without edema. 2+ pulses. NEUROLOGIC: Grossly nonfocal. EKG was reviewed and showed normal sinus rhythm, left axis, PVCs, delayed R-wave progression in the precordial leads and anteroseptal Q-waves. LABORATORY DATA Hemoglobin 10.9. Potassium 4.0, creatinine 1.4. Troponin 0.67, 0.55 and 0.58. TSH 1.4, LDL 51, HDL 48. DIAGNOSES 1. Acute CVA. 2. Elevated troponin. 3. Hypertension. DISPOSITION 1. Mr. Christensen will be monitored on telemetry. His troponin is elevated but is not trending in either direction. There is also evidence of mild renal insufficiency. The patient will be monitored on telemetry. 2. We will obtain echocardiogram to evaluate his left ventricular function. 3. I recommend to continue aspirin as recommended by Dr. Moreira. 4. I also recommend to continue therapy for hypertension. 5. He was started on a statin. 6. I will follow him for cardiology during his hospitalization. MD JAMES Aguiar/KALEE /8:28 AM /8:39 AM ADAN
[2017-04-11] MEDS ORDERED: ASPIRIN 81 MG CHEW TAB PO SCH (09:00)
[2017-04-11] MEDS ORDERED: INFLUENZA VIRUS VACCINE (QUADRIVALENT) 0.5 ML SYR IM ONE (09:00)
[2017-04-11] MEDS: SODIUM CHLORIDE 0.9% FLUSH 10 ML FLUSH IV FLUSH SCH ×2 (09:00→21:00)
--- NOTE | 2017-04-11 09:29 | HHI.PR ---
Subjective Remarks In bed appears sleepy. Says no new motor deficit, feels week on the left side left arm weaker than the left leg. No fever ro chills.No n/v/d/c. Denies chest pain or sob. Objective Vitals Vital Signs Date Time Temp Pulse Resp B/P (MAP) Pulse Ox O2 Delivery O2 Flow Rate FiO2 04/11/17 08:46 97.3 51 18 139/69 (92) 96 04/11/17 04:00 90 04/11/17 04:00 98.1 90 18 127/69 (88) 96 04/11/17 03:00 102 04/11/17 02:00 94 04/11/17 01:11 96 04/11/17 00:00 97.9 88 18 123/66 (85) 95 04/10/17 23:00 98.3 102 20 114/65 (81) 93 04/10/17 22:38 04/10/17 21:57 88 16 136/72 (93) 98 Nasal Cannula 2.00 04/10/17 19:15 98 21 04/10/17 18:14 87 16 136/67 (90) 98 Room Air 04/10/17 18:07 97 Nasal Cannula 2.00 04/10/17 17:45 98.1 85 16 154/123 (133) 95 I/O 04/10/17 04/10/17 04/10/17 04/11/17 04/11/17 04/11/17 07:00 15:00 23:00 07:00 15:00 23:00 Intake Total 560 ml Balance 560 ml Intake Oral 60 ml IV Total 500 ml # Voids 1 # Bowel Movements 0 Result Diagram: 04/11/17 0433 04/11/17 0433 Imaging Last Impressions Brain MRI 04/10/17 1805 Signed Impressions: Service Date/Time: Monday, April 10, 2017 19:32 - CONCLUSION: 1. Subtle hyperintensity involving the right frontoparietal cortex on the diffusion weighted images suggestive of acute infarct. Clinical correlation is recommended. 2. Age-related volume loss. 3. Minimal periventricular and subcortical white matter small vessel ischemic changes bilaterally. Bry Serrano MD Neck CTA 04/10/17 1750 Signed Impressions: Service Date/Time: Monday, April 10, 2017 18:01 - CONCLUSION: 1. No stenosis or occlusion of the carotid or vertebral arteries. 2. Bilateral pleural effusions. Bry Serrano MD Head CTA 04/10/17 1750 Signed Impressions: Service Date/Time: Monday, April 10, 2017 18:01 - CONCLUSION: 1. No significant stenosis, occlusion or aneurysm formation. 2. Bilateral pleural effusions. Bry Serrano MD Head/Neck CTA with Brain Perfusion 04/10/17 0000 Signed Impressions: Service Date/Time: Monday, April 10, 2017 18:01 - CONCLUSION: Decrease perfusion of the right frontoparietal region suggestive of acute infarct. Clinical correlation is recommended. The findings were discussed with Dr. Moreira at 6:48 PM on 04/10/17 Bry Serrano MD Head CT 04/10/17 0000 Signed Impressions: Service Date/Time: Monday, April 10, 2017 18:01 - CONCLUSION: 1. Age- related volume loss. 2. No acute edema, acute hemorrhage, midline shift or extra- axial fluid collections. Bry Serrano MD Chest X-Ray 04/10/17 0000 Signed Impressions: Service Date/Time: Monday, April 10, 2017 19:14 - CONCLUSION: 1. Patchy opacity within right lower lung infiltrates with possible pneumonia. Clinical correlation is recommended. 2. Mild cardiomegaly and minimal central pulmonary vascular congestion. Bry Serrano MD Objective Remarks GENERAL: Extremely pleasant elderly white male in no acute distress. and friend at bedside. HEENT: PERRLA, EOMI. No scleral icterus or conjunctival pallor. No lid lag. Mild facial droop. Mild slurring of speech. CARDIOVASCULAR: Regular rate and rhythm. No obvious murmurs to auscultation. No chest tenderness to palpation. RESPIRATORY: No obvious rhonchi or wheezing. Clear to auscultation. Breath sounds equal bilaterally. GASTROINTESTINAL: Abdomen soft, non-tender, nondistended. BS normal. MUSCULOSKELETAL: Extremities without clubbing, cyanosis, or edema. No obvious deformities. NEUROLOGICAL: Awake, alert and oriented x4. Strength 5/5 all extremities. No focal neurologic deficits. Moving both upper and lower extremities spontaneously. A/P Problem List: (1) CVA (cerebral vascular accident) ICD Code: I63.9 - Cerebral infarction, unspecified Status: Acute (2) NSTEMI (non-ST elevated myocardial infarction) ICD Code: I21.4 - Non-ST elevation (NSTEMI) myocardial infarction Status: Acute (3) HTN (hypertension) ICD Code: I10 - Essential (primary) hypertension (4) UTI (urinary tract infection) ICD Code: N39.0 - Urinary tract infection, site not specified Assessment and Plan CVA: acute onset of slurred speech, facial droop and left-sided weakness, symptoms improved. Not TPA candidate. CT Head negative, CTA w/ acute right frontoparietal infarct, images reviewed by me. Neuro checks, NPO, IVF, HOB flat. Dr. Moreira consulted, recommendation for Heparin gtt. Can be anticoagulated with Coumadin per neurology MRI pending. PT/OT/ Speech for eval/tx. NSTEMI: Trop 0.67, EKG w/ no acute ischemia, no c/o chest pain. Check serial cardiac enzymes, continue w/ Heparin gtt, check Lipid Profile, Check Hgb A1c. Consult Cardiology for further recommendations/intervention. CXR w/ patchy opacity, mild pulmonary congestion. Check Echo to eval for heart failure. Seen by cardiology conservative management. HTN: Permissive HTN in light of CVA. Antihypertensives prn for systolic >220. Monitor BP closely. UTI: U/a w/ UTI, c/o weakness x1 wk, likely compounded by UTI. On IV Rocephin , IVF for hydration, repeat labs in am. DVT Prophylaxis: Heparin gtt CM consulted for dc planning as needed. Likely needs rehab Problem Qualifiers (1) CVA (cerebral vascular accident): Qualified Codes: I63.9 - Cerebral infarction, unspecified Teresa Louie MD Apr 11, 2017 09:29
[2017-04-11] MEDS: ASPIRIN EC 325 MG TABEC PO SCH (13:45)
[2017-04-11] MEDS: DOCUSATE SODIUM 50 MG/SENNA 8.6 MG TAB PO SCH ×2 (13:50→21:57)
[2017-04-11] MEDS: PANTOPRAZOLE SOD 40 MG DELAYED RELEASE TAB PO SCH (13:50)
[2017-04-11] MEDS: WARFARIN SOD 3 MG TAB PO SCH (16:17)
[2017-04-11 16:45] LABS: HEMOGLOBIN A1C 6.2 % (4.3-6.0)
--- NOTE | 2017-04-11 17:12 | ECHRPT ---
Indication: Transient cerebral ischemic attack, unspecified CONCLUSIONS Moderately dilated left ventricle. The left ventricular systolic function is severely reduced with an estimated ejection fraction in th e range of 25-30%. There is global left ventricular dysfunction. [id number] mitral valve regurgitation Trace aortic valve regurgitation. There is mild to moderate tricuspid valve regurgitation. There is estimated mild pulmonary hypertension present (range 40-50 mmHg). BP: 139 / 69 HR: 51 Rhythm: MEASUREMENTS (Male / Female) Normal Values Technical Quality:Good 2D ECHO LV Diastolic Diameter PLAX 6.3 cm 4.2 - 5.9 / 3.9 - 5.3 cm LV Systolic Diameter PLAX 5.8 cm IVS Diastolic Thickness 0.8 cm 0.6 - 1.0 / 0.6 - 0.9 cm LVPW Diastolic Thickness 1.3 cm 0.6 - 1.0 / 0.6 - 0.9 cm LV Relative Wall Thickness 0.3 RV Internal Dim ED PLAX 1.7 cm M-MODE Aortic Root Diameter MM 3.5 cm LA Systolic Diameter MM 4.0 cm LA Ao Ratio MM 1.1 AV Cusp Separation MM 1.6 cm DOPPLER Mitral E Point Velocity 115.0 cm/s Mitral A Point Velocity 71.7 cm/s Mitral E to A Ratio 1.6 TR Peak Velocity 330.0 cm/s TR Peak Gradient 43.6 mmHg Right Atrial Pressure 10.0 mmHg Pulmonary Artery Systolic Pressu 53.6 mmHg Right Ventricular Systolic Press 53.6 mmHg FINDINGS LEFT VENTRICLE Moderately dilated left ventricle. The left ventricular systolic function is severely reduced with an estimated ejection fraction in th e range of 25-30%. There is global left ventricular dysfunction. RIGHT VENTRICLE The right ventricular size is normal. The right ventricular wall thickness is normal. LEFT ATRIUM The left atrial size is normal. RIGHT ATRIUM The right atrial size is normal. ATRIAL SEPTUM Normal atrial septal thickness without atrial level shunting by limited color doppler interrogation. AORTA The aortic root and proximal ascending aorta are not well visualized. MITRAL VALVE Structurally normal mitral valve. Ehap-yo-haghdpiw mitral valve regurgitation. AORTIC VALVE Trileaflet aortic valve. Trace aortic valve regurgitation. TRICUSPID VALVE Structurally normal tricuspid valve. There is mild to moderate tricuspid valve regurgitation. There is estimated mild pulmonary hypertension present (range 40-50 mmHg). PULMONARY VALVE The pulmonary valve is not well visualized. No pulmonary valve regurgitation. PERICARDIUM No pericardial effusion. Jasen Roca MD (Electronically Signed) Final Date:11 April 2017 17:10
[2017-04-11] MEDS: SODIUM CHLOR 0.9% 1000 ML INJ 1,000 ML IV SCH (20:45)
[2017-04-11] MEDS: PRAVASTATIN SOD 40 MG TAB PO SCH (21:57)
[2017-04-11] MEDS: HEPARIN-D5W 25,000 U/250 ML 250 ML IV PRN (22:06)
[2017-04-12] VITALS (21 sets, daily range): BP systolic 103–141; BP diastolic 53–94; PULSE 88–113; RESP 18–22; TEMP 97.4–98.1; O2SAT 92–96
--- NOTE | 2017-04-12 00:50 | EKG ---
Date Performed: 04/10/2017 Time Performed: 18:40:55 PTAGE: 89 years EKG: Sinus rhythm WITH FREQUENT VENTRICULAR PREMATURE COMPLEXES MARKED LEFT AXIS DEVIATION SEPTAL MYOCARDIAL INFARCTIO N ABNORMAL ECG PREVIOUS TRACING : 05/01/1996 13.16 Compared to prior tracing, septal myocardial infarction no w noted DOCTOR: Roshan Martinez Interpretating Date/Time 04/12/2017 00:49:43
[2017-04-12] MEDS: cefTRIAXone INJ 1,000 MG in SODIUM CHLORIDE 0.9% INJ 100 ML IV SCH (05:41)
[2017-04-12 06:55] LABS: INTERNATIONAL NORMALIZED RATIO 1.1 RATIO; PROTHROMBIN TIME - PATIENT 11.5 SEC (9.8-11.6)
--- NOTE | 2017-04-12 07:50 | HHI.PR ---
Subjective Remarks sr Objective Vital Signs Date Time Temp Pulse Resp B/P (MAP) Pulse Ox O2 Delivery O2 Flow Rate FiO2 04/12/17 06:00 98 04/12/17 05:00 100 04/12/17 04:00 Nasal Cannula 2.00 04/12/17 04:00 97.6 97 20 120/59 (79) 92 04/12/17 04:00 95 04/12/17 03:00 94 04/12/17 02:00 94 04/12/17 01:00 96 04/12/17 00:00 97.8 100 20 103/60 (74) 92 04/12/17 00:00 Nasal Cannula 2.00 04/12/17 00:00 88 04/11/17 23:00 92 04/11/17 22:00 98 04/11/17 21:00 98 04/11/17 20:00 Nasal Cannula 2.00 04/11/17 20:00 93 04/11/17 20:00 98.2 90 18 137/85 (102) 93 04/11/17 19:00 102 04/11/17 17:16 96 Nasal Cannula 2.00 04/11/17 16:09 97.5 98 18 128/78 (95) 04/11/17 12:55 97.3 95 18 135/67 (89) 04/11/17 10:06 96 Nasal Cannula 2.00 04/11/17 08:46 97.3 51 18 139/69 (92) 96 I/O 04/11/17 04/11/17 04/11/17 04/12/17 04/12/17 04/12/17 07:00 15:00 23:00 07:00 15:00 23:00 Intake Total 560 ml 240 ml 240 ml Output Total 400 ml Balance 560 ml 240 ml -160 ml Intake Oral 60 ml 240 ml 240 ml IV Total 500 ml Output Urine Total 400 ml # Voids 1 # Bowel Movements 0 1 Result Diagram: 04/11/1743204/11/17432 Objective Remarks awake alert vff face sym 5/5 t/o neuro exam nl no change Assessment and Plan Assessment and Plan imp trop inc r mca cva on difussion image echo ef 25-30% and holter pend ldl nl on asa and iv heparin should be no bolus ever!! needs cards to see and needs coumadin from my point of view probably had mi and cva and low ef make sure gets coumadin teaching and the nurse dc hep for inr>1.9 i will be out of town so will sign off fu office Yong Moreira MD Apr 12, 2017 07:50
[2017-04-12] MEDS: INSULIN ASPART SUPPLEMENTAL SCALE SQ SCH ×4 (08:00→21:23)
[2017-04-12] MEDS: SODIUM CHLORIDE 0.9% FLUSH 10 ML FLUSH IV FLUSH SCH ×2 (09:42→21:24)
[2017-04-12] MEDS: DOCUSATE SODIUM 50 MG/SENNA 8.6 MG TAB PO SCH ×2 (09:42→21:23)
[2017-04-12] MEDS: ASPIRIN EC 325 MG TABEC PO SCH (09:42)
[2017-04-12] MEDS: PANTOPRAZOLE SOD 40 MG DELAYED RELEASE TAB PO SCH (09:42)
[2017-04-12] MEDS: SODIUM CHLOR 0.9% 1000 ML INJ 1,000 ML IV SCH (09:46)
--- NOTE | 2017-04-12 11:16 | HHI.PR ---
Subjective Remarks In bed appears in nad. Family at bedside with multiple questions all answered to the best of my ability. Patient feel better today says weakness in his left arm and leg has improved. Also speech is more cleared, and facial droop improved. Objective Vitals Vital Signs Date Time Temp Pulse Resp B/P (MAP) Pulse Ox O2 Delivery O2 Flow Rate FiO2 04/12/17 09:26 103 04/12/17 08:00 97.4 105 18 112/53 (72) 93 04/12/17 06:00 98 04/12/17 05:00 100 04/12/17 04:00 Nasal Cannula 2.00 04/12/17 04:00 97.6 97 20 120/59 (79) 92 04/12/17 04:00 95 04/12/17 03:00 94 04/12/17 02:00 94 04/12/17 01:00 96 04/12/17 00:00 97.8 100 20 103/60 (74) 92 04/12/17 00:00 Nasal Cannula 2.00 04/12/17 00:00 88 04/11/17 23:00 92 04/11/17 22:00 98 04/11/17 21:00 98 04/11/17 20:00 Nasal Cannula 2.00 04/11/17 20:00 93 04/11/17 20:00 98.2 90 18 137/85 (102) 93 04/11/17 19:00 102 04/11/17 17:16 96 Nasal Cannula 2.00 04/11/17 16:09 97.5 98 18 128/78 (95) 04/11/17 12:55 97.3 95 18 135/67 (89) I/O 04/11/17 04/11/17 04/11/17 04/12/17 04/12/17 04/12/17 07:00 15:00 23:00 07:00 15:00 23:00 Intake Total 560 ml 240 ml 240 ml 300 ml Output Total 400 ml Balance 560 ml 240 ml -160 ml 300 ml Intake Oral 60 ml 240 ml 240 ml 300 ml IV Total 500 ml Output Urine Total 400 ml # Voids 1 # Bowel Movements 0 1 Result Diagram: 04/11/17 0433 04/11/17 0433 Imaging Last Impressions Brain MRI 04/10/17 721 Signed Impressions: Service Date/Time: Monday, April 10, 2017 19:32 - CONCLUSION: 1. Subtle hyperintensity involving the right frontoparietal cortex on the diffusion weighted images suggestive of acute infarct. Clinical correlation is recommended. 2. Age-related volume loss. 3. Minimal periventricular and subcortical white matter small vessel ischemic changes bilaterally. Bry Serrano MD Neck CTA 04/10/17 1750 Signed Impressions: Service Date/Time: Monday, April 10, 2017 18:01 - CONCLUSION: 1. No stenosis or occlusion of the carotid or vertebral arteries. 2. Bilateral pleural effusions. Bry Serrano MD Head CTA 04/10/17 1750 Signed Impressions: Service Date/Time: Monday, April 10, 2017 18:01 - CONCLUSION: 1. No significant stenosis, occlusion or aneurysm formation. 2. Bilateral pleural effusions. Bry Serrano MD Head/Neck CTA with Brain Perfusion 04/10/17 0000 Signed Impressions: Service Date/Time: Monday, April 10, 2017 18:01 - CONCLUSION: Decrease perfusion of the right frontoparietal region suggestive of acute infarct. Clinical correlation is recommended. The findings were discussed with Dr. Moreira at 6:48 PM on 04/10/17 Bry Serrano MD Head CT 04/10/17 0000 Signed Impressions: Service Date/Time: Monday, April 10, 2017 18:01 - CONCLUSION: 1. Age- related volume loss. 2. No acute edema, acute hemorrhage, midline shift or extra- axial fluid collections. rBy Serrano MD Chest X-Ray 04/10/17 0000 Signed Impressions: Service Date/Time: Monday, April 10, 2017 19:14 - CONCLUSION: 1. Patchy opacity within right lower lung infiltrates with possible pneumonia. Clinical correlation is recommended. 2. Mild cardiomegaly and minimal central pulmonary vascular congestion. Bry Serrano MD Objective Remarks GENERAL: Extremely pleasant elderly white male in no acute distress. HEENT: PERRLA, EOMI. No scleral icterus or conjunctival pallor. No lid lag. Mild facial droop. CARDIOVASCULAR: Regular rate and rhythm. No obvious murmurs to auscultation. No chest tenderness to palpation. RESPIRATORY: No obvious rhonchi or wheezing. Clear to auscultation. Breath sounds equal bilaterally. GASTROINTESTINAL: Abdomen soft, non-tender, nondistended. BS normal. MUSCULOSKELETAL: Extremities without clubbing, cyanosis, or edema. No obvious deformities. NEUROLOGICAL: Awake, alert and oriented x4. Strength 5/5 all extremities. No focal neurologic deficits. Moving both upper and lower extremities spontaneously.Speech is normal. A/P Problem List: (1) CVA (cerebral vascular accident) ICD Code: I63.9 - Cerebral infarction, unspecified Status: Acute (2) NSTEMI (non-ST elevated myocardial infarction) ICD Code: I21.4 - Non-ST elevation (NSTEMI) myocardial infarction Status: Acute (3) HTN (hypertension) ICD Code: I10 - Essential (primary) hypertension (4) UTI (urinary tract infection) ICD Code: N39.0 - Urinary tract infection, site not specified Assessment and Plan Right frontoparietal infarct CVA: acute onset of slurred speech, facial droop and left-sided weakness, symptoms improved. Not TPA candidate. CT Head negative, CTA w/ acute right frontoparietal infarct, images reviewed by me. Neuro checks. Stop IVF as with low EF. Dr. Moreira consulted, DC Heparin gtt. Can be anticoagulated with Coumadin per neurology also discussed with cardiology DC heparin, and continue ASA and coumadin MRI reviewed as above PT/OT/ Speech for eval/tx. NSTEMI: Trop 0.67, EKG w/ no acute ischemia, no c/o chest pain. Check serial cardiac enzymes, continue w/ Heparin gtt, check Lipid Profile, Check Hgb A1c. Consult Cardiology for further recommendations/intervention. CXR w/ patchy opacity, mild pulmonary congestion. 2Echo reviewed and discussed results with the family. EF 25-30% Optimize medical management per cardiology. Discussed with Dr Hendrix cardiology. BP is into a lower side will start carvedilol, lisinopril, high dose statin, continue ASA and coumadin. DC heparin. Seen by cardiology conservative management as above. PATIENT CANT HAVE BOLUS HEPARIN, not cleared by neurology for cardiac intervention poss in 4 weeks, discussed with the patient and family who wants very aggressive measures. HTN: Permissive HTN per stroke protocol. Monitor BP closely. Will start lisinopril, carvedilol. Monitor BP keep normotensive UTI: U/a w/ UTI, c/o weakness x1 wk, likely compounded by UTI. On IV Rocephin , IVF for hydration, repeat labs in am. Poss PNA per CXR, on Rocephin. Asymptomatic, no cough, fever or chills. No leucocytosis. DVT Prophylaxis: scd/teds/coumadin CM consulted for dc planning as needed. Likely needs rehab Discussed with the patient, nurse, family at bedside. Problem Qualifiers (1) CVA (cerebral vascular accident): Qualified Codes: I63.9 - Cerebral infarction, unspecified Teresa Louie MD Apr 12, 2017 11:16
[2017-04-12] MEDS ORDERED: PILL SPLITTER OTHER PRN (12:15)
[2017-04-12] MEDS: WARFARIN SOD 3 MG TAB PO SCH (16:49)
--- NOTE | 2017-04-12 17:16 | PD.CARD.PN ---
Subjective Subjective Remarks No CP, c/o PICKETT, fatigue and generalized weakness Objective Medications Current Medications Medications (Trade) Dose Ordered Sig/Alexandra Route Start Time Stop Time Status Last Admin Sodium Chloride 1,000 ml @ 75 mls/hr [id number] IV 04/10/17 18:05 04/12/17 09:46 (NS Flush) 2 ml BID IV FLUSH 04/10/17 21:00 04/12/17 09:42 (NS Flush) 2 ml UNSCH PRN IV FLUSH 04/10/17 19:30 (Vasotec Inj) 1.25 mg Q4H PRN IV PUSH 04/10/17 19:30 (NovoLOG SUPPLEMENTAL SCALE) 1 ACHS SQ 04/10/17 21:00 04/12/17 12:52 (D50w (Vial) Inj) 50 ml UNSCH PRN IV PUSH 04/10/17 19:30 (Glucagon Inj) 1 mg UNSCH PRN OTHER 04/10/17 19:30 (Protonix) 40 mg DAILY PO 04/11/17 09:00 04/12/17 09:42 (Zofran Inj) 4 mg Q6H PRN IVP 04/10/17 19:30 (Tylenol) 650 mg Q6H PRN PO 04/10/17 19:30 ([place] 5-325 Mg) 1 tab Q4H PRN PO 04/10/17 19:30 (Morphine Inj) 2 mg Q3H PRN IV PUSH 04/10/17 19:30 (Ebty-Colace) 1 tab BID PO 04/10/17 21:00 04/12/17 09:42 (Milk Of Magnesia Liq) 30 ml Q12H PRN PO 04/10/17 19:30 (Senokot) 17.2 mg Q12H PRN PO 04/10/17 19:30 (Dulcolax Supp) 10 mg DAILY PRN RECTAL 04/10/17 19:30 (Lactulose Liq) 30 ml DAILY PRN PO 04/10/17 19:30 Ceftriaxone Sodium 1000 mg/ Sodium Chloride 100 ml @ 200 mls/hr Q24H IV 04/11/17 06:00 04/12/17 05:41 Pharmacy Profile Note 0 ml @ 0 mls/hr UNSCH OTHER 04/11/17 14:00 (Coumadin) 3 mg DAILY@1600 PO 04/11/17 16:00 04/12/17 16:49 (Coreg) 3.125 mg Q12HR PO 04/12/17 21:00 (Prinivil) 2.5 mg DAILY PO 04/13/17 09:00 (Pravachol) 80 mg HS PO 04/12/17 21:00 (Ecotrin Ec) 81 mg DAILY PO 04/13/17 09:00 (Pill Splitter) 1 ea UNSCH PRN OTHER 04/12/17 12:15 Vital Signs / I&O Vital Signs Date Time Temp Pulse Resp B/P (MAP) Pulse Ox O2 Delivery O2 Flow Rate FiO2 04/12/17 15:46 97.9 113 22 141/85 (103) 95 04/12/17 15:00 113 04/12/17 12:14 98.0 04/12/17 12:02 96 Nasal Cannula 2.00 04/12/17 11:58 98 18 133/94 (107) 95 04/12/17 10:00 103 04/12/17 09:26 103 04/12/17 08:00 98 Nasal Cannula 2.00 04/12/17 08:00 97.4 105 18 112/53 (72) 93 04/12/17 06:00 98 04/12/17 05:00 100 04/12/17 04:00 Nasal Cannula 2.00 04/12/17 04:00 97.6 97 20 120/59 (79) 92 04/12/17 04:00 95 04/12/17 03:00 94 04/12/17 02:00 94 04/12/17 01:00 96 04/12/17 00:00 97.8 100 20 103/60 (74) 92 04/12/17 00:00 Nasal Cannula 2.00 04/12/17 00:00 88 04/11/17 23:00 92 04/11/17 22:00 98 04/11/17 21:00 98 04/11/17 20:00 Nasal Cannula 2.00 04/11/17 20:00 93 04/11/17 20:00 98.2 90 18 137/85 (102) 93 04/11/17 19:00 102 04/11/17 17:16 96 Nasal Cannula 2.00 I/O 1/30/18 1/30/18 04/11/17 04/12/17 04/12/17 04/12/17 07:00 15:00 23:00 07:00 15:00 23:00 Intake Total 560 ml 240 ml 240 ml 420 ml Output Total 400 ml Balance 560 ml 240 ml -160 ml 420 ml Intake Oral 60 ml 240 ml 240 ml 420 ml IV Total 500 ml Output Urine Total 400 ml # Voids 1 # Bowel Movements 0 1 Physical Exam GENERAL: In mild resp distress SKIN: Warm and dry. HEAD: Normocephalic. EYES: No scleral icterus. No injection or drainage. NECK: Supple, trachea midline. No JVD or lymphadenopathy. CARDIOVASCULAR: Regular rate and rhythm without murmurs, gallops, or rubs. RESPIRATORY: Breath sounds equal bilaterally. No accessory muscle use. GASTROINTESTINAL: Abdomen soft, non-tender, nondistended. MUSCULOSKELETAL: No cyanosis, or edema. Laboratory Laboratory Tests Test 04/11/17 20:47 04/12/17 04:50 04/12/17 12:20 Activated Partial Thromboplast Time 37.8 SEC 44.8 SEC 35.1 SEC Prothrombin Time 11.5 SEC Prothromb Time International Ratio 1.1 RATIO Assessment and Plan Problem List: (1) NSTEMI (non-ST elevated myocardial infarction) ICD Codes: I21.4 - Non-ST elevation (NSTEMI) myocardial infarction Status: Acute (2) CVA (cerebral vascular accident) ICD Codes: I63.9 - Cerebral infarction, unspecified Status: Acute (3) Cardiomyopathy ICD Codes: I42.9 - Cardiomyopathy, unspecified (4) HTN (hypertension) ICD Codes: I10 - Essential (primary) hypertension (5) Mitral regurgitation ICD Codes: I34.0 - Nonrheumatic mitral (valve) insufficiency Assessment and Plan No angina. Still quite SOB with exertion. Difficult situation, since PCI would require high dose heparin which could result in IC hemorrhage into the recent stroke. Cath, if needed, will have to be postponed by at least 4 weeks. Continue post [place] care with baby ASA, beta miky, LAUREN-I, and high dose statin. Continue warfarin to prevent recurrent CVA as per neurology. D/w Dr. Moreira. The plan was discussed with the patient and his family in detail, they understand the situation. Problem Qualifiers (1) CVA (cerebral vascular accident): Qualified Codes: I63.9 - Cerebral infarction, unspecified Quadrat,Giovanna ANDRADE Apr 12, 2017 17:16
[2017-04-12] MEDS ORDERED: PRAVASTATIN SOD 80 MG TAB PO SCH (21:00)
[2017-04-12] MEDS ORDERED: CARVEDILOL 3.125 MG TAB PO SCH (21:00)
[2017-04-12] MEDS: ATORVASTATIN 80 MG TAB PO SCH (21:23)
[2017-04-13] VITALS (16 sets, daily range): BP systolic 117–132; BP diastolic 52–89; PULSE 79–115; RESP 18–24; TEMP 97.1–98.3; O2SAT 92–99
[2017-04-13] MEDS: SODIUM CHLOR 0.9% 1000 ML INJ 1,000 ML IV SCH ×2 (01:32→12:45)
[2017-04-13] MEDS: cefTRIAXone INJ 1,000 MG in SODIUM CHLORIDE 0.9% INJ 100 ML IV SCH (04:50)
[2017-04-13 06:17] LABS: AUTOMATED NEUTROPHIL # 2.7 TH/MM3 (1.8-7.7); BASOPHIL # 0.1 TH/MM3 (0-0.2); BASOPHIL % 1.3 % (0.0-2.0); EOSINOPHIL # 0.1 TH/MM3 (0-0.4); EOSINOPHIL % 1.8 % (0.0-4.0); HEMATOCRIT 30.8 % (39.0-51.0); HEMOGLOBIN 10.7 GM/DL (13.0-17.0); LYMPH % 26.1 % (9.0-44.0); LYMPHOCYTE # 1.1 TH/MM3 (1.0-4.8); MEAN CELL VOLUME 107.5 FL (80.0-100.0); MEAN CORPUSCULAR HEMOGLOBIN 37.3 PG (27.0-34.0); MEAN CORPUSCULAR HGB CONC 34.7 % (32.0-36.0); MONO % 7.2 % (0.0-8.0); MONOCYTE # 0.3 TH/MM3 (0-0.9); NEUT % 63.6 % (16.0-70.0); PLATELET COUNT 186 TH/MM3 (150-450); RED BLOOD COUNT 2.86 MIL/MM3 (4.50-5.90); RED CELL DISTRIBUTION WIDTH 19.2 % (11.6-17.2); WHITE BLOOD COUNT 4.2 TH/MM3 (4.0-11.0)
[2017-04-13 06:37] LABS: BICARBONATE 19.9 MEQ/L (21.0-32.0); CALCIUM 8.8 MG/DL (8.5-10.1); CREATININE 1.27 MG/DL (0.60-1.30)
[2017-04-13] MEDS: INSULIN ASPART SUPPLEMENTAL SCALE SQ SCH ×4 (08:00→20:27)
[2017-04-13] MEDS ORDERED: LISINOPRIL 5 MG TAB PO SCH (09:00)
--- NOTE | 2017-04-13 09:59 | PD.CARD.PN ---
Subjective Subjective Remarks No CP, still c/o dyspnea and weakness, had abdominal discomfort yest, difficulty ambulating Objective Medications Current Medications Medications (Trade) Dose Ordered Sig/Alexandra Route Start Time Stop Time Status Last Admin Sodium Chloride 1,000 ml @ 75 mls/hr [id number] IV 04/10/17 18:05 04/13/17 01:32 (NS Flush) 2 ml BID IV FLUSH 04/10/17 21:00 04/12/17 21:24 (NS Flush) 2 ml UNSCH PRN IV FLUSH 04/10/17 19:30 (Vasotec Inj) 1.25 mg Q4H PRN IV PUSH 04/10/17 19:30 (NovoLOG SUPPLEMENTAL SCALE) 1 ACHS SQ 04/10/17 21:00 04/12/17 21:23 (D50w (Vial) Inj) 50 ml UNSCH PRN IV PUSH 04/10/17 19:30 (Glucagon Inj) 1 mg UNSCH PRN OTHER 04/10/17 19:30 (Protonix) 40 mg DAILY PO 04/11/17 09:00 04/12/17 09:42 (Zofran Inj) 4 mg Q6H PRN IVP 04/10/17 19:30 (Tylenol) 650 mg Q6H PRN PO 04/10/17 19:30 ([place] 5-325 Mg) 1 tab Q4H PRN PO 04/10/17 19:30 (Morphine Inj) 2 mg Q3H PRN IV PUSH 04/10/17 19:30 (Bety-Colace) 1 tab BID PO 04/10/17 21:00 04/12/17 21:23 (Milk Of Magnesia Liq) 30 ml Q12H PRN PO 04/10/17 19:30 (Senokot) 17.2 mg Q12H PRN PO 04/10/17 19:30 (Dulcolax Supp) 10 mg DAILY PRN RECTAL 04/10/17 19:30 (Lactulose Liq) 30 ml DAILY PRN PO 04/10/17 19:30 Ceftriaxone Sodium 1000 mg/ Sodium Chloride 100 ml @ 200 mls/hr Q24H IV 04/11/17 06:00 04/13/17 04:50 Pharmacy Profile Note 0 ml @ 0 mls/hr UNSCH OTHER 04/11/17 14:00 (Coumadin) 3 mg DAILY@1600 PO 04/11/17 16:00 04/12/17 16:49 (Coreg) 3.125 mg Q12HR PO 04/12/17 21:00 04/12/17 21:23 (Prinivil) 2.5 mg DAILY PO 04/13/17 09:00 (Ecotrin Ec) 81 mg DAILY PO 04/13/17 09:00 (Pill Splitter) 1 ea UNSCH PRN OTHER 04/12/17 12:15 (Lipitor) 80 mg HS PO 04/12/17 21:00 04/12/17 21:23 Vital Signs / I&O Vital Signs Date Time Temp Pulse Resp B/P (MAP) Pulse Ox O2 Delivery O2 Flow Rate FiO2 04/13/17 08:00 97.3 96 18 127/52 (77) 99 04/13/17 07:00 Nasal Cannula 2.00 21 04/13/17 07:00 89 04/13/17 06:00 94 04/13/17 05:00 92 04/13/17 04:00 97.1 96 20 118/72 (87) 92 04/13/17 03:47 93 04/13/17 03:00 88 04/13/17 02:00 86 04/13/17 01:00 86 04/13/17 00:00 97.6 92 18 117/56 (76) 95 04/13/17 00:00 90 04/12/17 23:00 96 04/12/17 22:00 96 04/12/17 21:00 90 04/12/17 20:52 95 Nasal Cannula 2.00 04/12/17 20:00 100 04/12/17 20:00 94 Nasal Cannula 2.00 04/12/17 20:00 98.1 104 22 129/66 (87) 94 04/12/17 19:00 100 04/12/17 15:46 97.9 113 22 141/85 (103) 95 04/12/17 15:00 113 04/12/17 12:14 98.0 04/12/17 12:02 96 Nasal Cannula 2.00 04/12/17 11:58 98 18 133/94 (107) 95 04/12/17 10:00 103 I/O 04/12/17 04/12/17 04/12/17 04/13/171/18 2/1/18 07:00 15:00 23:00 07:00 15:00 23:00 Intake Total 240 ml 420 ml 480 ml 240 ml Output Total 400 ml 350 ml Balance -160 ml 420 ml 130 ml 240 ml Intake Oral 240 ml 420 ml 480 ml 240 ml Output Urine Total 400 ml 350 ml # Voids 3 # Bowel Movements 1 0 0 Physical Exam GENERAL: In NAD SKIN: Warm and dry. HEAD: Normocephalic. EYES: No scleral icterus. No injection or drainage. NECK: Supple, trachea midline. No JVD or lymphadenopathy. CARDIOVASCULAR: Regular rate and rhythm without murmurs, gallops, or rubs. RESPIRATORY: Breath sounds equal bilaterally. No accessory muscle use. GASTROINTESTINAL: Abdomen soft, non-tender, nondistended. MUSCULOSKELETAL: No cyanosis, or edema. Laboratory Laboratory Tests Test 04/12/17 12:20 04/13/17 04:19 Activated Partial Thromboplast Time 35.1 SEC White Blood Count 4.2 TH/MM3 Red Blood Count 2.86 MIL/MM3 Hemoglobin 10.7 GM/DL Hematocrit 30.8 % Mean Corpuscular Volume 107.5 FL Mean Corpuscular Hemoglobin 37.3 PG Mean Corpuscular Hemoglobin Concent 34.7 % Red Cell Distribution Width 19.2 % Platelet Count 186 TH/MM3 Mean Platelet Volume 11.0 FL Neutrophils (%) (Auto) 63.6 % Lymphocytes (%) (Auto) 26.1 % Monocytes (%) (Auto) 7.2 % Eosinophils (%) (Auto) 1.8 % Basophils (%) (Auto) 1.3 % Neutrophils # (Auto) 2.7 TH/MM3 Lymphocytes # (Auto) 1.1 TH/MM3 Monocytes # (Auto) 0.3 TH/MM3 Eosinophils # (Auto) 0.1 TH/MM3 Basophils # (Auto) 0.1 TH/MM3 CBC Comment DIFF FINAL Differential Comment Blood Urea Nitrogen 24 MG/DL Creatinine 1.27 MG/DL Random Glucose 131 MG/DL Calcium Level 8.8 MG/DL Sodium Level 142 MEQ/L Potassium Level 3.9 MEQ/L Chloride Level 111 MEQ/L Carbon Dioxide Level 19.9 MEQ/L Anion Gap 11 MEQ/L Estimat Glomerular Filtration Rate 53 ML/MIN Assessment and Plan Problem List: (1) NSTEMI (non-ST elevated myocardial infarction) ICD Codes: I21.4 - Non-ST elevation (NSTEMI) myocardial infarction Status: Acute (2) CVA (cerebral vascular accident) ICD Codes: I63.9 - Cerebral infarction, unspecified Status: Acute (3) Cardiomyopathy ICD Codes: I42.9 - Cardiomyopathy, unspecified (4) HTN (hypertension) ICD Codes: I10 - Essential (primary) hypertension (5) Mitral regurgitation ICD Codes: I34.0 - Nonrheumatic mitral (valve) insufficiency Assessment and Plan No angina. Still SOB with exertion and weak. Difficult situation, since PCI would require high dose heparin which could result in IC hemorrhage into the recent stroke. Cath, if needed, will have to be postponed by at least 4 weeks. Continue post [place] care with baby ASA, beta miky, LAUREN-I, and high dose statin. Continue warfarin to prevent recurrent CVA as per neurology. The plan was discussed with the patient and his family again. Transfer to rehab when ready. Will schedule outpt f/u after rehab and proceed with outpt nuc ST to evaluate for the need for cardiac cath. Problem Qualifiers (1) CVA (cerebral vascular accident): Qualified Codes: I63.9 - Cerebral infarction, unspecified Giovanna Hendrix MD Apr 13, 2017 09:59
[2017-04-13] MEDS: ASPIRIN EC 81 MG TABEC PO SCH (10:44)
[2017-04-13] MEDS: PANTOPRAZOLE SOD 40 MG DELAYED RELEASE TAB PO SCH (10:44)
[2017-04-13] MEDS: DOCUSATE SODIUM 50 MG/SENNA 8.6 MG TAB PO SCH ×2 (10:44→20:29)
[2017-04-13] MEDS: SODIUM CHLORIDE 0.9% FLUSH 10 ML FLUSH IV FLUSH SCH ×2 (10:45→20:29)
[2017-04-13 11:49] LABS: METHYLMALONIC ACID 0.25 nmol/mL (<=0.40)
--- NOTE | 2017-04-13 14:55 | HHI.PR ---
Subjective Remarks Seen earlier today. dr Hendrix and family at bedside as well. Patient says she feels improved today, however he complaints of epigastric pain anf left sided chest apin. No diaphoresis, nausea, palpitations. Weakness improving. No n/v/d/c. Denies chest pain or sob. No fever or chills. Objective Vitals Vital Signs Date Time Temp Pulse Resp B/P (MAP) Pulse Ox O2 Delivery O2 Flow Rate FiO2 04/13/17 11:31 97.3 79 18 132/77 (95) 98 04/13/17 09:57 99 2.00 04/13/17 08:00 97.3 96 18 127/52 (77) 99 04/13/17 07:00 Nasal Cannula 2.00 21 04/13/17 07:00 89 04/13/17 06:00 94 04/13/17 05:00 92 04/13/17 04:00 97.1 96 20 118/72 (87) 92 04/13/17 03:47 93 04/13/17 03:00 88 04/13/17 02:00 86 04/13/17 01:00 86 04/13/17 00:00 97.6 92 18 117/56 (76) 95 04/13/17 00:00 90 04/12/17 23:00 96 04/12/17 22:00 96 04/12/17 21:00 90 04/12/17 20:52 95 Nasal Cannula 2.00 04/12/17 20:00 100 04/12/17 20:00 94 Nasal Cannula 2.00 04/12/17 20:00 98.1 104 22 129/66 (87) 94 04/12/17 19:00 100 04/12/17 15:46 97.9 113 22 141/85 (103) 95 04/12/17 15:00 113 I/O 04/12/17 04/12/17 04/12/17 04/13/17 04/13/17 04/13/17 07:00 15:00 23:00 07:00 15:00 23:00 Intake Total 240 ml 420 ml 480 ml 240 ml Output Total 400 ml 350 ml Balance -160 ml 420 ml 130 ml 240 ml Intake Oral 240 ml 420 ml 480 ml 240 ml Output Urine Total 400 ml 350 ml # Voids 3 # Bowel Movements 1 0 0 Result Diagram: 04/13/17 0419 04/13/17 0419 Imaging Last Impressions Brain MRI 04/10/17 1805 Signed Impressions: Service Date/Time: Monday, April 10, 2017 19:32 - CONCLUSION: 1. Subtle hyperintensity involving the right frontoparietal cortex on the diffusion weighted images suggestive of acute infarct. Clinical correlation is recommended. 2. Age-related volume loss. 3. Minimal periventricular and subcortical white matter small vessel ischemic changes bilaterally. Bry Serrano MD Neck CTA [id number]/10/[id number] Signed Impressions: Service Date/Time: Monday, April 10, 2017 18:01 - CONCLUSION: 1. No stenosis or occlusion of the carotid or vertebral arteries. 2. Bilateral pleural effusions. Bry Serrano MD Head CTA [id number]/[id number] Signed Impressions: Service Date/Time: Monday, April 10, 2017 18:01 - CONCLUSION: 1. No significant stenosis, occlusion or aneurysm formation. 2. Bilateral pleural effusions. Bry Serrano MD Head/Neck CTA with Brain Perfusion 04/10/17 0000 Signed Impressions: Service Date/Time: Monday, April 10, 2017 18:01 - CONCLUSION: Decrease perfusion of the right frontoparietal region suggestive of acute infarct. Clinical correlation is recommended. The findings were discussed with Dr. Moreira at 6:48 PM on 04/10/17 Bry Serrano MD Head CT 04/10/17 0000 Signed Impressions: Service Date/Time: Monday, April 10, 2017 18:01 - CONCLUSION: 1. Age- related volume loss. 2. No acute edema, acute hemorrhage, midline shift or extra- axial fluid collections. Bry Serrano MD Chest X-Ray 04/10/17 0000 Signed Impressions: Service Date/Time: Monday, April 10, 2017 19:14 - CONCLUSION: 1. Patchy opacity within right lower lung infiltrates with possible pneumonia. Clinical correlation is recommended. 2. Mild cardiomegaly and minimal central pulmonary vascular congestion. Bry Serrano MD Objective Remarks GENERAL: Extremely pleasant elderly white male in no acute distress. HEENT: PERRLA, EOMI. No scleral icterus or conjunctival pallor. No lid lag. Mild facial droop. CARDIOVASCULAR: Regular rate and rhythm. No obvious murmurs to auscultation. No chest tenderness to palpation. RESPIRATORY: No obvious rhonchi or wheezing. Clear to auscultation. Breath sounds equal bilaterally. GASTROINTESTINAL: Abdomen soft, non-tender, nondistended. BS normal. MUSCULOSKELETAL: Extremities without clubbing, cyanosis, or edema. No obvious deformities. NEUROLOGICAL: Awake, alert and oriented x4. Strength 5/5 all extremities. No focal neurologic deficits. Moving both upper and lower extremities spontaneously.Speech is normal. A/P Problem List: (1) CVA (cerebral vascular accident) ICD Code: I63.9 - Cerebral infarction, unspecified Status: Acute (2) NSTEMI (non-ST elevated myocardial infarction) ICD Code: I21.4 - Non-ST elevation (NSTEMI) myocardial infarction Status: Acute (3) HTN (hypertension) ICD Code: I10 - Essential (primary) hypertension (4) UTI (urinary tract infection) ICD Code: N39.0 - Urinary tract infection, site not specified Assessment and Plan Right frontoparietal infarct CVA: acute onset of slurred speech, facial droop and left-sided weakness, symptoms improved. Not TPA candidate. CT Head negative, CTA w/ acute right frontoparietal infarct, images reviewed by me. Neuro checks. Stop IVF as with low EF. Dr. Moreira consulted, DC Heparin gtt. Can be anticoagulated with Coumadin per neurology also discussed with cardiology DC heparin, and continue ASA and Coumadin MRI reviewed as above PT/OT/ Speech for eval/tx. NSTEMI: Trop 0.67, EKG w/ no acute ischemia, no c/o chest pain. Check serial cardiac enzymes, continue w/ Heparin gtt, check Lipid Profile, Check Hgb A1c. Consult Cardiology for further recommendations/intervention. CXR w/ patchy opacity, mild pulmonary congestion. 2Echo reviewed and discussed results with the family. EF 25-30% Optimize medical management per cardiology. Discussed with Dr Hendrix cardiology. BP is into a lower side, start low dose carvedilol, lisinopril, high dose statin, continue ASA and Coumadin. DC heparin. Seen by cardiology conservative management as above. PATIENT CANT HAVE BOLUS HEPARIN, not cleared by neurology for cardiac intervention poss in 4 weeks, discussed with the patient and family who wants very aggressive measures. HTN: Permissive HTN per stroke protocol. Monitor BP closely. Will start lisinopril, carvedilol. Monitor BP keep normotensive UTI: U/a w/ UTI, c/o weakness x1 wk, likely compounded by UTI. On IV Rocephin , IVF for hydration, repeat labs in am. Poss PNA per CXR, on Rocephin. Asymptomatic, no cough, fever or chills. No leucocytosis. DVT Prophylaxis: scd/teds/coumadin CM consulted for dc planning as needed. Likely needs rehab Discussed with the patient, nurse, family at bedside. Poor prognosis, guarded per cardiology. Not ready for DC per cardiology poss DC in 1-2 days Problem Qualifiers (1) CVA (cerebral vascular accident): Qualified Codes: I63.9 - Cerebral infarction, unspecified Teresa Louie MD Apr 13, 2017 14:55
[2017-04-13] MEDS: WARFARIN SOD 3 MG TAB PO SCH (16:00)
[2017-04-13 16:21] LABS: INTERNATIONAL NORMALIZED RATIO 1.3 RATIO; PROTHROMBIN TIME - PATIENT 12.9 SEC (9.8-11.6)
[2017-04-13] MEDS: CARVEDILOL 3.125 MG TAB PO SCH (20:29)
[2017-04-13] MEDS: ATORVASTATIN 80 MG TAB PO SCH (20:29)
[2017-04-14] VITALS (7 sets, daily range): BP systolic 114–129; BP diastolic 48–79; PULSE 40–84; RESP 16–20; TEMP 97.8; O2SAT 99–100
[2017-04-14] MEDS: SODIUM CHLOR 0.9% 1000 ML INJ 1,000 ML IV SCH ×2 (02:05→15:25)
[2017-04-14] MEDS: cefTRIAXone INJ 1,000 MG in SODIUM CHLORIDE 0.9% INJ 100 ML IV SCH (06:37)
[2017-04-14 06:51] LABS: AUTOMATED NEUTROPHIL # 2.9 TH/MM3 (1.8-7.7); BASOPHIL % 0.7 % (0.0-2.0); EOSINOPHIL # 0.1 TH/MM3 (0-0.4); EOSINOPHIL % 1.4 % (0.0-4.0); HEMATOCRIT 29.4 % (39.0-51.0); HEMOGLOBIN 10.2 GM/DL (13.0-17.0); LYMPH % 27.4 % (9.0-44.0); LYMPHOCYTE # 1.3 TH/MM3 (1.0-4.8); MEAN CELL VOLUME 107.3 FL (80.0-100.0); MEAN CORPUSCULAR HEMOGLOBIN 37.3 PG (27.0-34.0); MEAN CORPUSCULAR HGB CONC 34.7 % (32.0-36.0); MEAN PLATELET VOLUME 11.1 FL (7.0-11.0); MONO % 8.7 % (0.0-8.0); MONOCYTE # 0.4 TH/MM3 (0-0.9); NEUT % 61.8 % (16.0-70.0); PLATELET COUNT 152 TH/MM3 (150-450); RED BLOOD COUNT 2.74 MIL/MM3 (4.50-5.90); RED CELL DISTRIBUTION WIDTH 19.4 % (11.6-17.2); WHITE BLOOD COUNT 4.6 TH/MM3 (4.0-11.0)
[2017-04-14 06:57] LABS: INTERNATIONAL NORMALIZED RATIO 1.6 RATIO; PROTHROMBIN TIME - PATIENT 15.7 SEC (9.8-11.6)
[2017-04-14 07:17] LABS: BICARBONATE 20.9 MEQ/L (21.0-32.0); CREATININE 1.22 MG/DL (0.60-1.30)
[2017-04-14] MEDS: INSULIN ASPART SUPPLEMENTAL SCALE SQ SCH ×2 (08:00→12:00)
--- NOTE | 2017-04-14 08:04 | HHI.PR ---
Subjective Remarks Patient in the chair, appears in nad. NO n/v/d/c. Denies chest pain or sob. Speech improved and back t baseline. Eating fairly well. No new motor or sensory deficit. Says she did fairly well with PT, looking forward to more PT No chest pain overnight. No cough, fever or chills. No sob, n/v/d/c. Objective Vitals Vital Signs Date Time Temp Pulse Resp B/P (MAP) Pulse Ox O2 Delivery O2 Flow Rate FiO2 04/14/17 00:04 84 04/13/17 20:07 104 04/13/17 20:00 Nasal Cannula 2.00 04/13/17 19:44 97.5 115 24 129/89 (102) 04/13/17 15:19 98.3 99 18 132/76 (94) 98 04/13/17 15:15 99 04/13/17 11:31 97.3 79 18 132/77 (95) 98 04/13/17 09:57 99 2.00 I/O 04/13/17 04/13/17 04/13/17 04/14/17 04/14/17 04/14/17 07:00 15:00 23:00 07:00 15:00 23:00 Intake Total 240 ml 300 ml Output Total 350 ml Balance 240 ml -50 ml Intake Oral 240 ml 300 ml Output Urine Total 350 ml # Voids 3 # Bowel Movements 0 Result Diagram: 04/14/17 0519 04/14/17 0519 Imaging Last Impressions Brain MRI 04/10/17 1805 Signed Impressions: Service Date/Time: Monday, April 10, 2017 19:32 - CONCLUSION: 1. Subtle hyperintensity involving the right frontoparietal cortex on the diffusion weighted images suggestive of acute infarct. Clinical correlation is recommended. 2. Age-related volume loss. 3. Minimal periventricular and subcortical white matter small vessel ischemic changes bilaterally. Bry Serrano MD Neck CTA [id number]/10/171749 Signed Impressions: Service Date/Time: Monday, April 10, 2017 18:01 - CONCLUSION: 1. No stenosis or occlusion of the carotid or vertebral arteries. 2. Bilateral pleural effusions. Bry Serrano MD Head CTA [id number]/10/171749 Signed Impressions: Service Date/Time: Monday, April 10, 2017 18:01 - CONCLUSION: 1. No significant stenosis, occlusion or aneurysm formation. 2. Bilateral pleural effusions. Bry Serrano MD Head/Neck CTA with Brain Perfusion 04/10/17 0000 Signed Impressions: Service Date/Time: Monday, April 10, 2017 18:01 - CONCLUSION: Decrease perfusion of the right frontoparietal region suggestive of acute infarct. Clinical correlation is recommended. The findings were discussed with Dr. Moreira at 6:48 PM on 04/10/17 Bry Serrano MD Head CT 04/10/17 0000 Signed Impressions: Service Date/Time: Monday, April 10, 2017 18:01 - CONCLUSION: 1. Age- related volume loss. 2. No acute edema, acute hemorrhage, midline shift or extra- axial fluid collections. Bry Serrano MD Chest X-Ray 04/10/17 0000 Signed Impressions: Service Date/Time: Monday, April 10, 2017 19:14 - CONCLUSION: 1. Patchy opacity within right lower lung infiltrates with possible pneumonia. Clinical correlation is recommended. 2. Mild cardiomegaly and minimal central pulmonary vascular congestion. Byr Serrano MD Objective Remarks GENERAL: Extremely pleasant elderly white male in no acute distress. HEENT: PERRLA, EOMI. No scleral icterus or conjunctival pallor. No lid lag. Mild facial droop. CARDIOVASCULAR: Regular rate and rhythm. No obvious murmurs to auscultation. No chest tenderness to palpation. RESPIRATORY: No obvious rhonchi or wheezing. Clear to auscultation. Breath sounds equal bilaterally. GASTROINTESTINAL: Abdomen soft, non-tender, nondistended. BS normal. MUSCULOSKELETAL: Extremities without clubbing, cyanosis, or edema. No obvious deformities. NEUROLOGICAL: Awake, alert and oriented x4. Strength 5/5 all extremities. No focal neurologic deficits. Moving both upper and lower extremities spontaneously.Speech is normal. A/P Problem List: (1) CVA (cerebral vascular accident) ICD Code: I63.9 - Cerebral infarction, unspecified Status: Acute (2) NSTEMI (non-ST elevated myocardial infarction) ICD Code: I21.4 - Non-ST elevation (NSTEMI) myocardial infarction Status: Acute (3) HTN (hypertension) ICD Code: I10 - Essential (primary) hypertension (4) UTI (urinary tract infection) ICD Code: N39.0 - Urinary tract infection, site not specified Assessment and Plan Right frontoparietal infarct CVA: acute onset of slurred speech, facial droop and left-sided weakness, symptoms improved. Not TPA candidate. CT Head negative, CTA w/ acute right frontoparietal infarct, images reviewed by me. Neuro checks. Stop IVF as with low EF. Dr. Moreira consulted, DC Heparin gtt. Can be anticoagulated with Coumadin per neurology also discussed with cardiology DC heparin, and continue ASA and Coumadin MRI reviewed as above PT/OT/ Speech for eval/tx. NSTEMI: Trop 0.67, EKG w/ no acute ischemia, no c/o chest pain. Check serial cardiac enzymes, continue w/ Heparin gtt, check Lipid Profile, Check Hgb A1c. Consult Cardiology for further recommendations/intervention. CXR w/ patchy opacity, mild pulmonary congestion. 2Echo reviewed and discussed results with the family. EF 25-30% Optimize medical management per cardiology. Discussed with Dr Hendrix cardiology. BP is into a lower side, start low dose carvedilol, lisinopril, high dose statin, continue ASA and Coumadin. DC heparin. Seen by cardiology conservative management as above. PATIENT CANT HAVE BOLUS HEPARIN, not cleared by neurology for cardiac intervention poss in 4 weeks, discussed with the patient and family who wants very aggressive measures. HTN: Permissive HTN per stroke protocol. Monitor BP closely. Will start lisinopril, carvedilol. Monitor BP keep normotensive UTI: U/a w/ UTI, c/o weakness x1 wk, likely compounded by UTI. On IV Rocephin , IVF for hydration, repeat labs in am. Poss PNA per CXR, on Rocephin. Asymptomatic, no cough, fever or chills. No leucocytosis. DVT Prophylaxis: scd/teds/coumadin CM consulted for dc planning as needed. Likely needs rehab Discussed with the patient, nurse, family at bedside. Improving. DC to [facility], to follow up with PCP and consultants. Problem Qualifiers (1) CVA (cerebral vascular accident): Qualified Codes: I63.9 - Cerebral infarction, unspecified Teresa Louie MD Apr 14, 2017 08:04
[2017-04-14] MEDS ORDERED: LISI-519 PO (08:06)
[2017-04-14] MEDS ORDERED: COUM3TAB PO (08:06)
[2017-04-14] MEDS ORDERED: CARV3.125 PO (08:06)
[2017-04-14] MEDS ORDERED: ECASA81 PO (08:06)
--- NOTE | 2017-04-14 08:06 | HHI.DS ---
Discharge Summary Admission Date Apr 10, 2017 at 19:15 Discharge Date: Apr 14, 2017 Admitting Diagnosis NSTEMI, CVA (1) CVA (cerebral vascular accident) ICD Code: I63.9 - Cerebral infarction, unspecified Status: Acute (2) NSTEMI (non-ST elevated myocardial infarction) ICD Code: I21.4 - Non-ST elevation (NSTEMI) myocardial infarction Status: Acute (3) HTN (hypertension) ICD Code: I10 - Essential (primary) hypertension (4) UTI (urinary tract infection) ICD Code: N39.0 - Urinary tract infection, site not specified Procedures none Brief History - From Admission This is an 89-year-old male with a PMH of HTN and Prostate CA was brought to the ER by EMS as a Stroke Alert. Per and friend at bedside, patient had acute onset of left-sided facial droop, slurred speech and left-sided weakness. states pt has had generalized weakness for approx 1wk, worse w/ exertion , for which he has been evaluated by PCP. No previous h/o CVA. On arrival, BP 154/123, HR 85, O2 sat 95% on RA, Afebrile. CBC essentially unremarkable. Chemistry unremarkable. Troponin 0.67. INR 1.1. U/a w/ UTI. CT Head w/ age- related volume loss. CTA with decreased perfusion right frontoparietal region suggestive of acute infarct. CTA Neck with no stenosis or occlusion. Dr. Moreira consulted by ER physician, recommended Heparin gtt and further imaging for eval. CBC/BMP: 04/14/17 0519 04/14/17 0519 Significant Findings Laboratory Tests Test 04/11/17 13:32 04/11/17 20:47 04/12/17 04:50 04/12/17 12:20 Activated Partial Thromboplast Time 45.8 SEC (24.3-30.1) 37.8 SEC (24.3-30.1) 44.8 SEC (24.3-30.1) 35.1 SEC (24.3-30.1) Test 2/1/18 04:19 04/13/17 15:56 04/14/17 05:19 Red Blood Count 2.86 MIL/MM3 (4.50-5.90) 2.74 MIL/MM3 (4.50-5.90) Hemoglobin 10.7 GM/DL (13.0-17.0) 10.2 GM/DL (13.0-17.0) Hematocrit 30.8 % (39.0-51.0) 29.4 % (39.0-51.0) Mean Corpuscular Volume 107.5 FL (80.0-100.0) 107.3 FL (80.0-100.0) Mean Corpuscular Hemoglobin 37.3 PG (27.0-34.0) 37.3 PG (27.0-34.0) Red Cell Distribution Width 19.2 % (11.6-17.2) 19.4 % (11.6-17.2) Blood Urea Nitrogen 24 MG/DL (7-18) 25 MG/DL (7-18) Random Glucose 131 MG/DL (74-106) 119 MG/DL (74-106) Chloride Level 111 MEQ/L (98-107) 111 MEQ/L (98-107) Carbon Dioxide Level 19.9 MEQ/L (21.0-32.0) 20.9 MEQ/L (21.0-32.0) Estimat Glomerular Filtration Rate 53 ML/MIN (>89) 56 ML/MIN (>89) Prothrombin Time 12.9 SEC (9.8-11.6) 15.7 SEC (9.8-11.6) Mean Platelet Volume 11.1 FL (7.0-11.0) Monocytes (%) (Auto) 8.7 % (0.0-8.0) Imaging Last Impressions Brain MRI 04/10/17 1805 Signed Impressions: Service Date/Time: Monday, April 10, 2017 19:32 - CONCLUSION: 1. Subtle hyperintensity involving the right frontoparietal cortex on the diffusion weighted images suggestive of acute infarct. Clinical correlation is recommended. 2. Age-related volume loss. 3. Minimal periventricular and subcortical white matter small vessel ischemic changes bilaterally. Bry Serrano MD Neck CTA 04/10/17 1750 Signed Impressions: Service Date/Time: Monday, April 10, 2017 18:01 - CONCLUSION: 1. No stenosis or occlusion of the carotid or vertebral arteries. 2. Bilateral pleural effusions. Bry Serrano MD Head CTA 04/10/17 1750 Signed Impressions: Service Date/Time: Monday, April 10, 2017 18:01 - CONCLUSION: 1. No significant stenosis, occlusion or aneurysm formation. 2. Bilateral pleural effusions. Bry Serrano MD Head/Neck CTA with Brain Perfusion 04/10/17 0000 Signed Impressions: Service Date/Time: Monday, April 10, 2017 18:01 - CONCLUSION: Decrease perfusion of the right frontoparietal region suggestive of acute infarct. Clinical correlation is recommended. The findings were discussed with Dr. Moreira at 6:48 PM on 04/10/17 Bry Serrano MD Head CT 04/10/17 0000 Signed Impressions: Service Date/Time: Monday, April 10, 2017 18:01 - CONCLUSION: 1. Age- related volume loss. 2. No acute edema, acute hemorrhage, midline shift or extra- axial fluid collections. Bry Serrano MD Chest X-Ray 04/10/17 0000 Signed Impressions: Service Date/Time: Monday, April 10, 2017 19:14 - CONCLUSION: 1. Patchy opacity within right lower lung infiltrates with possible pneumonia. Clinical correlation is recommended. 2. Mild cardiomegaly and minimal central pulmonary vascular congestion. Bry Serrano MD PE at Discharge GENERAL: Extremely pleasant elderly white male in no acute distress. HEENT: PERRLA, EOMI. No scleral icterus or conjunctival pallor. No lid lag. Mild facial droop. CARDIOVASCULAR: Regular rate and rhythm. No obvious murmurs to auscultation. No chest tenderness to palpation. RESPIRATORY: No obvious rhonchi or wheezing. Clear to auscultation. Breath sounds equal bilaterally. GASTROINTESTINAL: Abdomen soft, non-tender, nondistended. BS normal. MUSCULOSKELETAL: Extremities without clubbing, cyanosis, or edema. No obvious deformities. NEUROLOGICAL: Awake, alert and oriented x4. Strength 5/5 all extremities. No focal neurologic deficits. Moving both upper and lower extremities spontaneously.Speech is normal. Hospital Course Right frontoparietal infarct CVA: acute onset of slurred speech, facial droop and left-sided weakness, symptoms improved. Not TPA candidate. CT Head negative, CTA w/ acute right frontoparietal infarct, images reviewed by me. Neuro checks. Stop IVF as with low EF. Dr. Moreira consulted, DC Heparin gtt. Can be anticoagulated with Coumadin per neurology also discussed with cardiology DC heparin, and continue ASA and Coumadin. MRI reviewed as above PT/OT/ Speech for eval/tx. NSTEMI: Trop 0.67, EKG w/ no acute ischemia, no c/o chest pain. Check serial cardiac enzymes, continue w/ Heparin gtt, check Lipid Profile, Check Hgb A1c. Consult Cardiology for further recommendations/intervention. CXR w/ patchy opacity, mild pulmonary congestion. 2Echo reviewed and discussed results with the family. EF 25-30% Optimize medical management per cardiology. Discussed with Dr Hendrix cardiology. BP is into a lower side, start low dose carvedilol, lisinopril, high dose statin, continue ASA and Coumadin. DC heparin. Seen by cardiology conservative management as above. PATIENT CANT HAVE BOLUS HEPARIN, not cleared by neurology for cardiac intervention can have cardiac intervention in 4 weeks after CVA, discussed with the patient and family who wants very aggressive measures. HTN: Permissive HTN per stroke protocol. Monitor BP closely. Will start lisinopril, carvedilol. Monitor BP keep normotensive UTI: U/a w/ UTI, c/o weakness x1 wk, likely compounded by UTI. On IV Rocephin , IVF for hydration, repeat labs in am. Poss PNA per CXR, on Rocephin. Asymptomatic, no cough, fever or chills. No leucocytosis. DVT Prophylaxis: scd/teds/coumadin CM consulted for dc planning as needed. Needs rehab Improving. DC to [facility], to follow up with PCP and consultants. Pt Condition on Discharge: Stable Discharge Disposition: Rehab Inpatient Discharge Time: > 30 minutes Discharge Instructions DIET: Follow Instructions for: Heart Healthy Diet Activities you can perform: Regular-No Restrictions Follow up Referrals: Cardiology - 1 Week Neurology - 2 Weeks with Yong Moreira MD PCP Follow-up - 2-3 Days New Orders: PT/INR - Daily New Medications: Cefuroxime (Ceftin) 250 Mg Tab 250 MG PO BID for infection, #10 TAB Lactobacillus Acidophilus (Lactinex) 1 Chew 1 TAB CHEW DAILY for Nutritional Supplement, #30 TAB [address] (Aspirin DR) 81 Mg Tabdr 81 MG PO DAILY for Blood Clot Prevention, #30 TAB Carvedilol (Coreg) 3.125 Mg Tab 6.25 MG PO Q12HR for Blood Pressure Management, #60 TAB Lisinopril (Lisinopril) 5 Mg Tab 5 MG PO DAILY for Blood Pressure Management, #30 TAB Warfarin (Coumadin) 3 Mg Tab 3 MG PO DAILY@1600 for Blood Clot Prevention, #30 TAB Continued Medications: Linaclotide (Linzess) 145 Mcg Cap 145 MCG PO DAILY, CAP 0 Refills Pantoprazole (Protonix) 40 Mg Tab 40 MG PO DAILY for Reflux, #30 TAB 0 Refills Discontinued Medications: Losartan (Losartan) 25 Mg Tab 25 MG PO DAILY for Blood Pressure Management, #30 TAB 0 Refills Teresa Louie MD Apr 14, 2017 08:06
[2017-04-14] MEDS ORDERED: CEFU1TAB18 PO (08:07)
[2017-04-14] MEDS ORDERED: LACTCHW3 CHEW (08:10)
[2017-04-14] MEDS: SODIUM CHLORIDE 0.9% FLUSH 10 ML FLUSH IV FLUSH SCH (09:00)
[2017-04-14] MEDS ORDERED: LISINOPRIL 5 MG TAB PO SCH (09:00)
[2017-04-14] MEDS: ASPIRIN EC 81 MG TABEC PO SCH (09:13)
[2017-04-14] MEDS: PANTOPRAZOLE SOD 40 MG DELAYED RELEASE TAB PO SCH (09:13)
[2017-04-14] MEDS: CARVEDILOL 3.125 MG TAB PO SCH (09:13)
[2017-04-14] MEDS: DOCUSATE SODIUM 50 MG/SENNA 8.6 MG TAB PO SCH (09:13)
--- NOTE | 2017-04-14 14:21 | PD.CARD.PN ---
Subjective Subjective Remarks Telemetry reveals atrial fibrillation with PVCs today. No complaints (Evelyn Jimenez) Objective Medications Current Medications Medications (Trade) Dose Ordered Sig/Alexandra Route Start Time Stop Time Status Last Admin Sodium Chloride 1,000 ml @ 75 mls/hr [id number] IV 04/10/17 18:05 04/14/17 02:05 (NS Flush) 2 ml BID IV FLUSH 04/10/17 21:00 04/13/17 10:45 (NS Flush) 2 ml UNSCH PRN IV FLUSH 04/10/17 19:30 (Vasotec Inj) 1.25 mg Q4H PRN IV PUSH 04/10/17 19:30 (NovoLOG SUPPLEMENTAL SCALE) 1 ACHS SQ 04/10/17 21:00 04/12/17 21:23 (D50w (Vial) Inj) 50 ml UNSCH PRN IV PUSH 04/10/17 19:30 (Glucagon Inj) 1 mg UNSCH PRN OTHER 04/10/17 19:30 (Protonix) 40 mg DAILY PO 04/11/17 09:00 04/14/17 09:13 (Zofran Inj) 4 mg Q6H PRN IVP 04/10/17 19:30 (Tylenol) 650 mg Q6H PRN PO 04/10/17 19:30 ([place] 5-325 Mg) 1 tab Q4H PRN PO 04/10/17 19:30 (Morphine Inj) 2 mg Q3H PRN IV PUSH 04/10/17 19:30 (Bety-Colace) 1 tab BID PO 04/10/17 21:00 04/14/17 09:13 (Milk Of Magnesia Liq) 30 ml Q12H PRN PO 04/10/17 19:30 (Senokot) 17.2 mg Q12H PRN PO 04/10/17 19:30 (Dulcolax Supp) 10 mg DAILY PRN RECTAL 04/10/17 19:30 (Lactulose Liq) 30 ml DAILY PRN PO 04/10/17 19:30 Ceftriaxone Sodium 1000 mg/ Sodium Chloride 100 ml @ 200 mls/hr Q24H IV 04/11/17 06:00 04/14/17 06:37 Pharmacy Profile Note 0 ml @ 0 mls/hr UNSCH OTHER 04/11/17 14:00 (Coumadin) 3 mg DAILY@1600 PO 04/11/17 16:00 04/13/17 16:00 (Ecotrin Ec) 81 mg DAILY PO 04/13/17 09:00 04/14/17 09:13 (Pill Splitter) 1 ea UNSCH PRN OTHER 04/12/17 12:15 (Lipitor) 80 mg HS PO 04/12/17 21:00 04/13/17 20:29 (Coreg) 6.25 mg Q12HR PO 04/13/17 21:00 04/14/17 09:13 (Prinivil) 5 mg DAILY PO 04/14/17 09:00 04/14/17 09:13 Vital Signs / I&O Vital Signs Date Time Temp Pulse Resp B/P (MAP) Pulse Ox O2 Delivery O2 Flow Rate FiO2 04/14/17 13:38 99 Nasal Cannula 2.00 04/14/17 12:30 80 04/14/17 12:22 97.8 40 16 114/48 (70) 100 04/14/17 08:42 97.8 44 20 129/79 (96) 04/14/17 08:00 Nasal Cannula 3.00 04/14/17 00:04 84 04/13/17 20:07 104 04/13/17 20:00 Nasal Cannula 2.00 04/13/17 19:44 97.5 115 24 129/89 (102) 04/13/17 15:19 98.3 99 18 132/76 (94) 98 04/13/17 15:15 99 I/O 04/13/17 04/13/17 04/13/17 04/14/17 04/14/17 04/14/17 07:00 15:00 23:00 07:00 15:00 23:00 Intake Total 240 ml 300 ml Output Total 350 ml 375 ml Balance 240 ml -50 ml -375 ml Intake Oral 240 ml 300 ml Output Urine Total 350 ml 375 ml # Voids 3 # Bowel Movements 0 Physical Exam GENERAL: Elderly male SKIN: Warm and dry. HEAD: Normocephalic. EYES: No scleral icterus. No injection or drainage. NECK: Supple, trachea midline. CARDIOVASCULAR: Irreg irreg, ectopic beats, reg rate RESPIRATORY: Breath sounds equal bilaterally. No accessory muscle use. GASTROINTESTINAL: Abdomen soft, non-tender, nondistended. MUSCULOSKELETAL: No cyanosis, or edema. BACK: Nontender without obvious deformity. No CVA tenderness. Laboratory Laboratory Tests Test 04/13/17 15:56 04/14/17 05:19 Prothrombin Time 12.9 SEC 15.7 SEC Prothromb Time International Ratio 1.3 RATIO 1.6 RATIO White Blood Count 4.6 TH/MM3 Red Blood Count 2.74 MIL/MM3 Hemoglobin 10.2 GM/DL Hematocrit 29.4 % Mean Corpuscular Volume 107.3 FL Mean Corpuscular Hemoglobin 37.3 PG Mean Corpuscular Hemoglobin Concent 34.7 % Red Cell Distribution Width 19.4 % Platelet Count 152 TH/MM3 Mean Platelet Volume 11.1 FL Neutrophils (%) (Auto) 61.8 % Lymphocytes (%) (Auto) 27.4 % Monocytes (%) (Auto) 8.7 % Eosinophils (%) (Auto) 1.4 % Basophils (%) (Auto) 0.7 % Neutrophils # (Auto) 2.9 TH/MM3 Lymphocytes # (Auto) 1.3 TH/MM3 Monocytes # (Auto) 0.4 TH/MM3 Eosinophils # (Auto) 0.1 TH/MM3 Basophils # (Auto) 0.0 TH/MM3 CBC Comment DIFF FINAL Differential Comment Blood Urea Nitrogen 25 MG/DL Creatinine 1.22 MG/DL Random Glucose 119 MG/DL Calcium Level 9.0 MG/DL Sodium Level 141 MEQ/L Potassium Level 3.9 MEQ/L Chloride Level 111 MEQ/L Carbon Dioxide Level 20.9 MEQ/L Anion Gap 9 MEQ/L Estimat Glomerular Filtration Rate 56 ML/MIN (Evelyn Jimenez) Assessment and Plan Problem List: (1) NSTEMI (non-ST elevated myocardial infarction) ICD Codes: I21.4 - Non-ST elevation (NSTEMI) myocardial infarction Status: Acute (2) CVA (cerebral vascular accident) ICD Codes: I63.9 - Cerebral infarction, unspecified Status: Acute (3) Cardiomyopathy ICD Codes: I42.9 - Cardiomyopathy, unspecified (4) HTN (hypertension) ICD Codes: I10 - Essential (primary) hypertension Status: Chronic (5) Mitral regurgitation ICD Codes: I34.0 - Nonrheumatic mitral (valve) insufficiency (6) Atrial fibrillation ICD Codes: I48.91 - Unspecified atrial fibrillation Status: Acute Assessment and Plan Continue coumadin Currently rate controlled Check mag level Continue BB, AVE, Statin, ASA [facility] The patient was seen and evaluated by Dr Georges who completed face to face encounter, physical exam and participated in evaluation and management (Evelyn Jimenez) Assessment and Plan The exam, history, and the medical decision-making described in the above note were completed with the assistance of the mid-level provider. I reviewed and agree with the findings presented. I attest that I had a [id number] encounter with the patient on the same day, and personally performed and documented my assessment and findings in the medical record Rate satisfactory , to stay on coumadin for now.. (Sole Georges MD) Problem Qualifiers (1) CVA (cerebral vascular accident): Qualified Codes: I63.9 - Cerebral infarction, unspecified Evelyn Jimenez Apr 14, 2017 14:21 Sole Georges MD Apr 17, 2017 14:29
--- NOTE | 2017-04-14 19:35 | EKG ---
Date Performed: 04/13/2017 Time Performed: 22:09:14 PTAGE: 89 years EKG: Sinus rhythm with bigeminal PVCs with borderline 1st degree A-V block Left axis deviation Possible anteroseptal i nfarct - age undetermined Since the prior tracing, there has been no significant change Abnormal ECG PREVIOUS TRACING : 04/10/2017 18.40 DOCTOR: Natan Chatterjee Interpretating Date/Time 04/14/2017 19:34:44
--- NOTE | 2017-04-14 19:35 | EKG ---
Date Performed: 04/14/2017 Time Performed: 08:06:56 PTAGE: 89 years EKG: Sinus rhythm with bigeminal PVCs with borderline 1st degree A-V block. Left anterior fascicular block Possible an teroseptal infarct - age undetermined Since the prior tracing, there has been no significant change A bnormal ECG PREVIOUS TRACING : 04/13/2017 22.09 DOCTOR: Natan Chatterjee Interpretating Date/Time 04/14/2017 19:34:24
== END 2017-04-14 15:35 | DRG 64 ==
LOC: NEPC 17:45 → NEDA 19:15 → HCIS 22:43
PROVIDERS: ADMIT Hospitalist; ATTEND Hospitalist
DX: I63.511 Cerebral infarction due to unspecified occlusion or stenosis of right middle cerebral artery (principal); I21.4 Non-ST elevation (NSTEMI) myocardial infarction; I42.9 Cardiomyopathy, unspecified; G81.94 Hemiplegia, unspecified affecting left nondominant side; N39.0 Urinary tract infection, site not specified; R29.810 Facial weakness; I10 Essential (primary) hypertension; Z85.46 Personal history of malignant neoplasm of prostate; R47.81 Slurred speech; R09.89 Other specified symptoms and signs involving the circulatory and respiratory systems; I49.3 Ventricular premature depolarization; I34.0 Nonrheumatic mitral (valve) insufficiency; I48.91 Unspecified atrial fibrillation
CPT/HCPCS: 0042T; 70450; 70496; 70498; 70553; 71045; 80048; 80053; 80061; 80307; 81001; 82550; 82607; 82746; 82948; 83036; 83735; 83921; 84425; 84439; 84443; 84450; 84460; 84484; 85025; 85384; 85610; 85652; 85730; 86038; 86140; 86850; 86900; 86901; 87077; 87086; 87186; 93005; 93225; 93226; 93306; 94150; 96360; A9579; J0696; J1644; J1815; J7030; Q9967

== ENCOUNTER → 2017-05-02 | Outpatient (CLI) | payer MEDICARE, BC ==
[~2017-05-02] MED LIST changes: +ATOR80TA45 PO; +CARV3.125 PO; +COMMODE 3-IN-11 MIS; +COUM1TAB PO; +ECASA81 PO; +FURO20TA PO; +LACTCHW3 CHEW; +LINA145C PO; +MELA5 PO; -OLME1TAB PO; +POTA20TA5 PO; +PROT40TA PO
[2017-05-02 13:40] LABS: AUTOMATED NEUTROPHIL # 1.9 TH/MM3 (1.8-7.7); BASOPHIL # 0.1 TH/MM3 (0-0.2); EOSINOPHIL # 0.2 TH/MM3 (0-0.4); HEMATOCRIT 31.1 % (39.0-51.0); HEMOGLOBIN 10.6 GM/DL (13.0-17.0); LYMPH % 34.5 % (9.0-44.0); LYMPHOCYTE # 1.3 TH/MM3 (1.0-4.8); MEAN CELL VOLUME 106.9 FL (80.0-100.0); MEAN CORPUSCULAR HEMOGLOBIN 36.6 PG (27.0-34.0); MEAN CORPUSCULAR HGB CONC 34.2 % (32.0-36.0); MEAN PLATELET VOLUME 11.3 FL (7.0-11.0); MONO % 6.3 % (0.0-8.0); MONOCYTE # 0.2 TH/MM3 (0-0.9); NEUT % 51.2 % (16.0-70.0); PLATELET COUNT 148 TH/MM3 (150-450); RED BLOOD COUNT 2.91 MIL/MM3 (4.50-5.90); RED CELL DISTRIBUTION WIDTH 19.7 % (11.6-17.2); WHITE BLOOD COUNT 3.7 TH/MM3 (4.0-11.0)
[2017-05-02 13:47] LABS: ALBUMIN 3.6 GM/DL (3.4-5.0); AST (GOT) 38 U/L (15-37); BLOOD UREA NITROGEN 27 MG/DL (7-18); CALCIUM 9.2 MG/DL (8.5-10.1); CHLORIDE 104 MEQ/L (98-107); CREATININE 1.34 MG/DL (0.60-1.30); GLOMERULAR FILTRATION RATE 50 ML/MIN (>89); GLUCOSE,FASTING 120 MG/DL (74-99); IRON (FE) 103 MCG/DL (65-175); SODIUM (NA) 141 MEQ/L (136-145)
[2017-05-02 14:13] LABS: % SATURATION IRON PROFILE 37.3 % (20-50); ALKALINE PHOSPHATASE 75 U/L (45-117); ALT (GPT) 38 U/L (12-78); CHOLESTEROL 111 MG/DL (120-200); FREE T4 1.41 NG/DL (0.76-1.46); HDL CHOLESTEROL 48.2 MG/DL (40.0-60.0); LDL CHOLESTEROL 47 MG/DL (0-99); TOTAL BILIRUBIN ADULT 0.8 MG/DL (0.2-1.0); TOTAL IRON BINDING CAPACITY 276 MCG/DL (250-450); TOTAL PROTEIN 7.2 GM/DL (6.4-8.2); TRIGLYCERIDES 77 MG/DL (42-150)
== END ==
LOC: PLAB 09:00
PROVIDERS: ATTEND Family Medicine
DX: E78.2 Mixed hyperlipidemia (principal); R63.4 Abnormal weight loss; I12.9 Hypertensive chronic kidney disease with stage 1 through stage 4 chronic kidney disease, or unspecified chronic kidney disease; N18.2 Chronic kidney disease, stage 2 (mild); D63.1 Anemia in chronic kidney disease; Z79.899 Other long term (current) drug therapy
CPT/HCPCS: 80053; 80061; 82607; 83540; 83550; 84439; 84443; 84480; 85025

== ENCOUNTER → 2017-05-24 | Outpatient (CLI) | payer MEDICARE, BC ==
--- NOTE | 2017-05-25 10:08 | RSPPFT ---
DATE OF PROCEDURE: 05/24/17 COMMENTS: VOLUMES DYNAMIC: FVC and FEV1 mildly reduced. FLOWS: FEV1% mildly reduced; FEF 25-75 severely reduced. IMPRESSION: Mild to moderate obstructive ventilatory defect with possible restriction as well. Full lung volumes would be necessary and a post-bronchodilator study may be of help in planning therapy.
== END ==
LOC: PHRSP 09:55
PROVIDERS: ATTEND Internal Medicine Interventional Cardiology
DX: I50.23 Acute on chronic systolic (congestive) heart failure (principal); Z51.81 Encounter for therapeutic drug level monitoring; Z79.899 Other long term (current) drug therapy
CPT/HCPCS: 94010

== ENCOUNTER → 2017-05-26 | Outpatient (CLI) | payer MEDICARE, BC ==
[2017-05-26 13:48] LABS: CREATININE 1.53 MG/DL (0.60-1.30)
[2017-05-26 14:03] LABS: FREE T4 1.44 NG/DL (0.76-1.46)
== END ==
LOC: PLAB 09:25
PROVIDERS: ATTEND Internal Medicine Interventional Cardiology
DX: I50.23 Acute on chronic systolic (congestive) heart failure (principal); I10 Essential (primary) hypertension; I25.5 Ischemic cardiomyopathy; I48.0 Paroxysmal atrial fibrillation; Z79.899 Other long term (current) drug therapy
CPT/HCPCS: 36415; 82565; 84132; 84295; 84439; 84443; 84520

== ENCOUNTER → 2017-06-08 | Outpatient (CLI) | payer MEDICARE, BC ==
[2017-06-08 20:56] LABS: CREATININE 1.91 MG/DL (0.60-1.30)
== END ==
LOC: PLAB 11:45
PROVIDERS: ATTEND Internal Medicine Interventional Cardiology
DX: I10 Essential (primary) hypertension (principal)
CPT/HCPCS: 36415; 82565; 84132; 84295; 84520

== ENCOUNTER → 2017-07-18 | Outpatient (CLI) | payer MEDICARE, BC ==
[2017-07-18 13:53] LABS: ALBUMIN 3.5 GM/DL (3.4-5.0); AST (GOT) 25 U/L (15-37); BICARBONATE 27.5 MEQ/L (21.0-32.0); BLOOD UREA NITROGEN 47 MG/DL (7-18); CALCIUM 9.4 MG/DL (8.5-10.1); CHLORIDE 106 MEQ/L (98-107); CHOLESTEROL 114 MG/DL (120-200); CREATININE 1.95 MG/DL (0.60-1.30); GLOMERULAR FILTRATION RATE 33 ML/MIN (>89); GLUCOSE,FASTING 106 MG/DL (74-99); SODIUM (NA) 141 MEQ/L (136-145)
[2017-07-18 13:57] LABS: ALKALINE PHOSPHATASE 65 U/L (45-117); ALT (GPT) 32 U/L (12-78); CHOLESTEROL/ HDL RATIO 2.02 RATIO; HDL CHOLESTEROL 56.3 MG/DL (40.0-60.0); LDL CHOLESTEROL 48 MG/DL (0-99); TOTAL BILIRUBIN ADULT 0.7 MG/DL (0.2-1.0); TOTAL PROTEIN 8.3 GM/DL (6.4-8.2); TRIGLYCERIDES 48 MG/DL (42-150)
== END ==
LOC: PLAB 09:58
PROVIDERS: ATTEND Internal Medicine Interventional Cardiology
DX: I50.23 Acute on chronic systolic (congestive) heart failure (principal); I10 Essential (primary) hypertension; I25.5 Ischemic cardiomyopathy; E78.2 Mixed hyperlipidemia; I48.0 Paroxysmal atrial fibrillation; Z79.899 Other long term (current) drug therapy
CPT/HCPCS: 36415; 80053; 80061; 82550